=== PATIENT | female | born 1945 | race Caucasian/White ===

== ENCOUNTER → 2017-08-04 08:20 | Outpatient (CLI) | payer MEDICARE, SELFPAY ==
--- NOTE | 2017-08-04 08:36 | CA_ITS ---
PROCEDURE: 2-D M-mode and color Doppler study INDICATIONS FOR THE TEST: Chest pain COPD Heart Murmur Tobacco Smoking Palpitations Fatigue Syncope Edema HypertensionXDiabetes Mellitus Rheumatic Fever SOBXDOEXObesityXHyperlipidemia Family History HD Additional History PATIENT INFORMATION HEIGHT: 62 WEIGHT:217 GENDER: Female B/P:130/70 2-D/M-MODE INTERPRETATION: 2-D MEASUREMENTS OBSERVED VALUES IN CMS Right Ventricular Dimension (RVDd) 2.3 Interventricular Septum (Thickness)(IVsd) 1.4 Left Ventricular Internal Dimensions(LVIDd) 4.7 Left Ventricular Posterior Wall (Thickness)(LVPWd) 1.1 Aortic Root 3.1 Aortic Cusp Separation 1.9 Left Atrial Dimensions (LAD) 2.6 2D 1. Technically difficult study because of the patient's factor and poor acoustic windows 2. Left atrium is mildly enlarged, left ventricle is normal size, mild concentric left ventricular hypertrophy, visually estimated ejection fraction approximately 40%, there is marked hypokinesis involving the mid to distal septum, anterior and apical wall. A repeat study with Definity contrast is recommended 3. The right atrium and right ventricle are relatively normal size and function. 4. The aortic valve is minimally thickened and fibrosed. 5. The mitral and tricuspid valve are grossly normal. 6. No significant pericardial effusion noted. DOPPLER INTERROGATION: Doppler interrogation of the aortic, mitral and tricuspid valvular presence of mild mitral and tricuspid regurgitation, tricuspid and jet velocity is insufficient for calculation of the right ventricular systolic pressure, grade 1 diastolic dysfunction seen with tissue Doppler evidence of raised left atrial pressure. CONCLUSION: 1. Technically difficult study because of the patient's factor and poor acoustic windows, endocardial surfaces are poorly visualized. 2. Mildly enlarged left atrium, normal left ventricular size, mild concentric left ventricular hypertrophy, visually estimated ejection fraction 40% with multiple segmental wall motion abnormality described above. Grade 1 diastolic dysfunction seen with tissue Doppler evidence of raised left atrial pressure. 3. Mild mitral and tricuspid regurgitation 4. No significant pericardial effusion noted.
--- NOTE | 2017-08-04 09:24 | MM_ITS ---
MM Dig screening mamm BI w/CAD CAD Screening ORDERING PHYSICIAN : Harry Torres MD PATIENT AGE: 72 years GENDER: Female COMPARISON: No prior studies available for comparison. The patient unsure of site of previous mammogram, and states it was over 10 years ago INDICATION: Routine screening. No hormones no new complaints Family history. Maternal aunt with breast cancer TECHNIQUE: Standard CC and MLO images were obtained. R2 CAD reviewed. FINDINGS: Lower density breast with scattered moles and multiple markers bilaterally. RIGHT BREAST: No prominent findings. A small 6 mm nodular density at lateral breast towards upper outer quadrant is noted.. It is most evident on cc views and seems to dissipate on MLO view by far most likely a benign feature. Since no previous studies Would suggest 6-8 months follow-up to confirm stable baseline character here. LEFT BREAST No areas of concern follow-up in one year recommended No new findings IMPRESSION: ... Right breast. Tiny 6 mm nodular density lateral right breast towards upper-outer quadrant. Most likely benign features but would suggest a follow-up right mammogram in 6-8 months to confirm stable baseline character.With routine protocol thereafter BI-RADS Category: 3 Benign Finding Short Term Follow-up RECOMMENDED FOLLOW-UP: 6M - 6 MONTH FOLLOW-UP Follow-up Right mammogram 6 months to confirm stable baseline character. (A letter has been sent to the patient regarding results of the study.)
== END ==
PROVIDERS: Family Provider Family Medicine; PCP Family Medicine; Visit Provider Family Medicine
DX: R06.02 Shortness of breath (principal); Z12.31 Encounter for screening mammogram for malignant neoplasm of breast
CPT/HCPCS: 77067; 93306

== ENCOUNTER → 2018-03-02 11:30 | Outpatient (CLI) | payer MEDICARE, SELFPAY ==
--- NOTE | 2018-03-02 11:36 | XR_ITS ---
XR chest 2V HISTORY: ITS.REASON: COUGH ORDERING PHYSICIAN: Harry Torres MD PATIENT AGE: 72 years COMPARISON: 04/04/2011 FINDINGS: The cardiomediastinal silhouette and pulmonary vascularity are within normal limits. There is some increased density noted in the right infrahilar region. There were chronic changes in this area on 04/04/2011 however, the current radiograph shows some slight increased density in this area which may represent superimposed infiltrate/pneumonia. The remaining lungs are clear. There are mild degenerative changes in the thoracic spine. A nodular density is noted over the posterior aspect of the T7 vertebral body on the lateral view possibly due to sclerotic lesion of the vertebra or overlying osteophyte. Cannot exclude the possibility of a pulmonary nodule. Consider follow-up radiograph to confirm stability. IMPRESSION: 1. Chronic changes in the right lower lung zone with superimposed patchy infiltrate/pneumonia. 2. 1 cm nodular opacity overlies T7 vertebral body on the lateral view could be due to bony abnormality or pulmonary nodule. Consider follow-up radiograph to confirm stability
== END ==
PROVIDERS: PCP Family Medicine; Visit Provider Family Medicine
DX: R05 Cough (principal)
CPT/HCPCS: 71046

== ENCOUNTER → 2018-04-10 13:31 | Outpatient (CLI) | payer MEDICARE, SELFPAY ==
--- NOTE | 2018-04-10 13:34 | MM_ITS ---
MM Dig mamm DX unilat RT CAD Ordering Physician: Harry Torres MD Patient Age: 73 years Female COMPARISON: July 2017 baseline study INDICATION: Follow-up small benign-appearing asymmetric density TECHNIQUE: Cc and MLO view right breast. Along with spot CC and 90 degree view. RIGHT MAMMOGRAM. DIAGNOSTIC EXAM Tiny less than 6 mm density upper-outer quadrant right breast stable to less evident today mammogram studies than on previous July 2017 study. This area Actually appears to Becomes even less evident on the additional CC and MLO spot views from today. It Seem to compress out. Not of significant concern and can be followed.. Patient may resume annual scheduled IMPRESSION: ............ The tiny nodular density upper-outer quadrant right breast slightly less evident today. Supporting benign feature. It can be followed No significant new findings. Bilateral follow-up to resume annual schedule in 6-8 months suggested BI-RADS Category: 2 Benign Finding(s) RECOMMENDED FOLLOW-UP: 6M 6 MONTH FOLLOW-UP A letter has been sent to the patient regarding results of the study.)
== END ==
PROVIDERS: PCP Family Medicine; Visit Provider Family Medicine
DX: R92.8 Other abnormal and inconclusive findings on diagnostic imaging of breast (principal)
CPT/HCPCS: 77065

== ENCOUNTER → 2018-07-28 10:08 | Outpatient (CLI) | payer MEDICARE, SELFPAY ==
--- NOTE | 2018-07-28 10:15 | XR_ITS ---
XR shoulder RT min 2V HISTORY: ITS.REASON: RT SHOULDER PAIN ORDERING PHYSICIAN: Harry Torres MD PATIENT AGE: 73 years Comparison: None FINDINGS: No fracture or dislocation. No lytic or blastic change. There is normal mineralization. There are mild osteoarthritic changes of the glenohumeral joint with osteosclerosis of the glenoid and osteophytes of the glenohumeral joint. IMPRESSION: Osteoarthritis of the glenohumeral joint
== END ==
PROVIDERS: PCP Family Medicine; Visit Provider Family Medicine
DX: M25.511 Pain in right shoulder (principal)
CPT/HCPCS: 73030

== ENCOUNTER 2018-09-10 11:00 | Outpatient (RCR) | payer MEDICARE, SELFPAY | END 2018-09-10 11:05 | disposition home or self-care (01) | LOC: OT 11:00 | PROVIDERS: Visit Provider Orthopaedic Surgery | DX: M25.511 Pain in right shoulder (principal) | CPT/HCPCS: 97014; 97110; 97166; G0283 ==

== ENCOUNTER → 2019-08-30 10:50 | Outpatient (CLI) | payer MEDICARE, SELFPAY ==
--- NOTE | 2019-08-30 10:51 | CA_ITS ---
APPROVED REPORT EXAM: Comprehensive 2D, Doppler, and color-flow Echocardiogram Furniture Duster: Jackie Chino CRT Ht: 5 ft 2 in Wt: 200lbs BSA: 1.91 BP: 150/64 mmHg Indications: HTN, DM, HLD, GERD, CHF 2D Dimensions LVOT 1.74 cm (M/F) 1.5-2.5 M-Mode Dimensions RVDd 2.09 cm (0.9-2.6) LVDd 5.41 cm (3.5-5.7) LVDs 4.02 cm (3.5-5.7) IVSd 1.31 cm (0.6-1.1) PWd 1.04 cm (0.6-1.1) EF (Teich) 50.10% FS 25.70% EDV (Teich) 141.90 mL ESV (Teich) 70.80 mL LV Diastology E/A Ratio 0.76 Mitral Valve MV A Velocity 109.00 (40-130 cm/s) Left Ventricle Left atrium is moderately enlarged, left ventricle is normal size, mild concentric left ventricular hypertrophy, visually estimated ejection fraction 45%, left ventricle is mildly globally hypokinetic. Diastolic parameters are inconclusive. Right Ventricle Right atrium and right ventricular normal size and contractility. Aortic Valve Aortic valve is minimally thickened and calcified, there is no aortic stenosis or aortic insufficiency. Mitral Valve Mitral valve leaflets are minimally thickened, there is moderate mitral regurgitation Tricuspid Valve Tricuspid valve is grossly normal, there is moderate tricuspid regurgitation, calculated right ventricular systolic pressure is 54 mmHg. Pulmonic Valve Pulmonic valve is poorly visualized. Great Vessels Aortic root is normal size. Pericardium No significant pericardial effusion noted. Conclusion 1. Biatrial enlargement, normal left ventricular size, visually estimated ejection fraction 45%, left ventricle is mildly globally hypokinetic. Diastolic parameters are inconclusive. 2. Moderate mitral and tricuspid regurgitation, calculated right ventricular systolic pressure is 54 mmHg. 3. No significant pericardial effusion noted. Electronically signed by : Sony Vargas, 08/30/2019 20:13:13
== END ==
PROVIDERS: PCP Family Medicine; Visit Provider Physician Assistant
DX: I42.9 Cardiomyopathy, unspecified (principal); I50.22 Chronic systolic (congestive) heart failure; I51.89 Other ill-defined heart diseases; R06.09 Other forms of dyspnea
CPT/HCPCS: 93306

== ENCOUNTER → 2020-02-08 07:41 | Outpatient (CLI) | payer MEDICARE, SELFPAY ==
--- NOTE | 2020-02-08 07:46 | MM_ITS ---
PROCEDURE: MM DIG SCREENING MAMM BI W/CAD Referring Doctor: Harry Torres Patient Age:74Y CLINICAL INDICATION: SCREENING 74-year-old. No hormones. No new complaints Family history: Maternal aunt with breast cancer COMPARISON: MG SCBI MM Dig screening mamm BI w/CAD from 08/04/2017 MG DXRT MM Dig mamm DX unilat RT CAD from 04/10/2018 TECHNIQUE: Standard CC and MLO images were obtained. R2 CAD reviewed. Bilateral digital breast tomosynthesis included. FINDINGS: Low-density breast with generalized fatty replacement. No new suspicious or dominant mass. No suspicious calcifications. Scattered skin moles again encountered and some are marked. Right breast: Stable no new areas of concern . Stable very small area of nodularity at the lateral right breast to a unchanged in 2018 most likely small intramammary lymph node. Can be followed Left breast: Stable. No areas of concern . Stable generous axillary node with partially calcified rim unchanged since 2018 Bilateral follow-up 1 year recommended IMPRESSION: Stable bilateral mammogram with no new areas of concern Low-density breast generalized fatty replacement BI-RAD Category: 2 Benign Finding(s) FOLLOW-UP: 1YR 1 Year Follow-up (A letter has been sent to the patient regarding results of the study.) Dictated by: Jason Palafox MD 02/15/2020 09:53 Jason Palafox MD in [place] 02/15/2020 09:53
== END ==
PROVIDERS: PCP Family Medicine; Visit Provider Family Medicine
DX: Z12.31 Encounter for screening mammogram for malignant neoplasm of breast (principal)
CPT/HCPCS: 77063; 77067

== ENCOUNTER → 2020-09-13 09:51 | Outpatient (CLI) | payer MEDICARE, SELFPAY ==
--- NOTE | 2020-09-13 09:57 | CA_ITS ---
APPROVED REPORT EXAM: Comprehensive 2D, Doppler, and color-flow Echocardiogram Financial Analyst Intern: Megha Bello, DEANN, RVS Ht: 5 ft 2 in Wt: 206lbs BSA: 1.94 BP: 142/82 mmHg Indications: Cm, CHF, Pulm HTN, SOB 2D Dimensions Left Atrium 2.94 cm F: 2.7 - 3.8 LA Volume 77.40 mL LVOT 1.66 cm (M/F) 1.5-2.5 LA Volume Index 40.10 mL/m2 (M/F) 16-34 M-Mode Dimensions RVDd 3.04 cm (0.9-2.6) LA Diam 4.23 cm (1.9-4.0) LVDd 4.92 cm (3.5-5.7) Ao Diam 2.67 cm (2.0-3.7) LVDs 3.56 cm (3.5-5.7) IVSd 0.85 cm (0.6-1.1) PWd 0.72 cm (0.6-1.1) EF (Teich) 57.00% EPSs 0.65 cm FS 30.10% EDV (Teich) 123.20 mL TAPSE 2.15 (<1.7) ESV (Teich) 53.00 mL LV Diastology E Decel Time 200.00 (160-240 msec) E/A Ratio 0.78 MED E' 13.40 (< 7 cm/sec) MED A' 9.40 cm/s E'/MED E' Ratio 6.70 (>14) LAT E' 9.30 (<10 cm/sec) LAT A' 12.20 cm/s E/LAT E' Ratio 9.66 (>14) Pulm Vein s 70.00 cm/sec Pulm Vein d 26.00 cm/sec Ar-A Duration 130.00 msec Aortic Valve LVOT Max 108.00 (70-110 cm/s) LVOT VTI 24.59 cm AoV Peak Jerson. 180.00 (50-130 cm/s) AO Peak GR. 13.00 mmHg AO Mean GR. 6.30 (<5 mmHg) AO VTI 43.69 (18-25 cm) LUCAS (VTI) 1.22 (2.5-4.5 cm2) Mitral Valve MV A Velocity 115.00 (40-130 cm/s) E/A Ratio 0.78 MV Decel. Time 200.00 (160-240 ms) Pulmonary Valve PV Peak Velocity 109.00 (50-150 cm/s) Tricuspid Valve TR P. Velocity 327.00 cm/s RAP Estimate 10.00 mmHg RVSP 52.70 mmHg Left Ventricle Left atrium is mildly enlarged, left ventricle is normal size, mild concentric left ventricular hypertrophy, visually estimated ejection fraction 45%, there is abnormal septal motion. Grade 1 diastolic dysfunction seen without tissue Doppler evidence of raise left atrial pressure. Right atrium and right ventricle mildly enlarged with normal contractility. Aortic Valve Aortic valve is minimally thickened and fibrosed, there is no aortic stenosis or aortic insufficiency. Mitral Valve Mitral valve leaflets are minimally thickened, there is moderate mitral regurgitation. Tricuspid Valve Tricuspid grossly normal, there is mild tricuspid regurgitation, calculated right ventricular systolic pressure is 52 mmHg. Pulmonic Valve Pulmonic valve is poorly visualized. Great Vessels Aortic root is normal size. Pericardium No significant pericardial effusion noted. Conclusion 1. Biatrial enlargement, normal left ventricular size, mild concentric left ventricular hypertrophy, visually estimated ejection fraction 45%, grade 1 diastolic dysfunction without tissue Doppler evidence of raise left atrial pressure, there is abnormal septal motion. 2. Moderate mitral and mild tricuspid regurgitation, calculated right ventricular systolic pressure is 52 mmHg. 3. No significant pericardial effusion noted. Electronically signed by : Sony Vargas, 09/14/2020 13:27:26
== END ==
PROVIDERS: PCP Family Medicine; Visit Provider Nurse Practitioner Family
DX: I27.20 Pulmonary hypertension, unspecified (principal); I50.22 Chronic systolic (congestive) heart failure; I50.33 Acute on chronic diastolic (congestive) heart failure; I11.0 Hypertensive heart disease with heart failure; I42.0 Dilated cardiomyopathy; E11.9 Type 2 diabetes mellitus without complications; Z79.4 Long term (current) use of insulin
CPT/HCPCS: 93306

== ENCOUNTER 2021-05-13 02:45 | Emergency (ER) | payer MEDICARE, SELFPAY ==
[2021-05-13 02:46] VITALS: BP 186/95; PULSE 103; RESP 16; TEMP 36.9; O2SAT 99; BMI 38.4
[2021-05-13 03:30] LABS: Influenza A, PCR Not Detected (NotDetected); Influenza B, PCR Not Detected (NotDetected)
[2021-05-13 03:31] LABS: Basophils # 0.1 K/mm3 (0-0.2); Basophils % 0.7 % (0.1-2.0); Eosinophils # 0.1 K/mm3 (0.0-0.4); Eosinophils % 1.9 % (0.1-12.0); Hematocrit 38.9 % (37.0-47.0); Hemoglobin 11.9 g/dL (12.2-16.2); Lymphocytes # 1.4 K/mm3 (0.7-4.5); Mean Corpuscular HGB Conc 30.5 g/dL (31.8-35.4); Mean Corpuscular Hemoglobin 27.9 pg (27.0-31.2); Mean Corpuscular Volume 91.4 fl (81-99); Mean Platelet Volume 8.4 fl (7.4-10.4); Monocytes # 0.5 K/mm3 (0.1-1.0); Monocytes % 6.5 % (1.7-9.3); Neutrophils # 5.1 K/mm3 (1.8-7.8); Neutrophils % 71.8 % (37.0-80.0); Platelet Count 251 K/mm3 (142-424); Red Blood Count 4.26 M/mm3 (4.20-5.40); Red Cell Distribution Width 14.1 % (11.5-17.5); White Blood Count 7.1 K/mm3 (4.8-10.8)
[2021-05-13 03:43] LABS: Alanine Aminotransferase 52 U/L (12-78); Albumin Level 4.4 g/dl (3.5-5.0); Albumin/Globulin Ratio 1.4 (1.1-1.8); Alkaline Phosphatase 142 U/L (38-126); Anion Gap 10.7 mEq/L (5-15); Aspartate Amino Transferase 60 U/L (14-36); Bilirubin,Total 0.4 mg/dl (0.2-1.3); Blood Urea Nitrogen 15 mg/dl (7-17); Calcium 9.8 mg/dl (8.4-10.2); Carbon Dioxide 22 mmol/L (22.0-30.0); Chloride 107 mmol/L (98-107); Creatinine Clearance Estimated 65 mL/min (50-200); Estimated Glomerular Filt Rate 48 ml/min (>60); GFR (African American) 58 ML/MIN (>60); Globulin 3.2 g/dL (1.3-3.2); Glucose 102 mg/dl (74-100); Potassium 4.7 mmoL/L (3.5-5.1); Sodium 135 mmol/L (136-145); Total Protein,Serum 7.6 g/dl (6.3-8.2)
[2021-05-13 03:47] LABS: Strep Scrn Group A (Rapid) Negative (Negative)
[2021-05-13 03:50] LABS: C-Reactive Protein 50.1 mg/L (0-4)
[2021-05-13 04:10] LABS: Coronavirus 19, PCR Detected (NotDetected)
[2021-05-13 04:11] LABS: Erythrocyte Sedimentation Rate 52 mm/hr (0-30)
--- NOTE | 2021-05-13 04:11 | XR_ITS ---
PROCEDURE INFORMATION: Exam: XR Chest Exam date and time: 05/13/2021 4:11 AM Age: 76 years old Clinical indication: Other: Sore throat covid positive; Additional info: Covid positive sore throat TECHNIQUE: Imaging protocol: XR of the chest. Views: 2 views. COMPARISON: CR CXR2V XR chest 2V 03/02/2018 11:55 AM FINDINGS: Lungs: Unremarkable. No consolidation. Pleural spaces: Unremarkable. No pleural effusion. No pneumothorax. Heart/Mediastinum: Unremarkable. No cardiomegaly. Bones/joints: Unremarkable. IMPRESSION: No acute findings.
--- NOTE | 2021-05-13 04:36 | HMH.EDURI ---
ED Disposition Clinical Impression: COVID-19 Pharyngitis Qualifiers: Pharyngitis/tonsillitis etiology: unspecified etiology Qualified Code(s): J02.9 - Acute pharyngitis, unspecified Disposition: Home, Self-Care Condition on Discharge: Good Instructions: DI for COVID-19 (Suspected or Confirmed ) Additional Instructions: use meds and see pcp for follow up Prescriptions: dexAMETHasone [Decadron] 6 mg PO DAILY #6 tab [facility]: [id number] Azithromycin [Zithromax 250mg tab] 250 mg PO DIRECTED #6 tab Transmission Status: Pending to [id number] Referrals: Harry Torres MD [Primary Care Provider] - - Critical Care Critical Care Time: No Attestation: On 05/13/21, the high probability of a clinically significant, sudden or life threatening deterioration of the following system(s) required my full and direct attention, intervention and personal management. The time I documented below is in addition to time spent performing reported procedures but includes the following listed in this critical care notation. Medical Decision Making - Medical Records Medical records reviewed: Yes: I reviewed the patient's medical records. - [place] Inquiry Pt receiving controlled substance: No Vital Signs: 05/13/21 02:46 Temperature 98.4 F Temperature Source Oral Pulse Rate [Right] 103 H Respiratory Rate 16 Blood Pressure [Right Arm] 186/95 H Blood Pressure Mean [Right Arm] 125 02 Sat by Pulse Oximetry 99 - Lab Data Lab results reviewed: Yes: I reviewed the patient's lab results. Lab Results 05/13/21 03:00: WBC 7.1, RBC 4.26, Hgb 11.9 L, Hct 38.9, MCV 91.4, MCH 27.9, MCHC 30.5 L, RDW 14.1, Plt Count 251, MPV 8.4, Neut % (Auto) 71.8, Lymph % (Auto) 19.0, [place] % (Auto) 6.5, Eos % (Auto) 1.9, Baso % (Auto) 0.7, Neut # (Auto) 5.1, Lymph # (Auto) 1.4, [place] # (Auto) 0.5, Eos # (Auto) 0.1, Baso # (Auto) 0.1, ESR 52 H 05/13/21 03:00: Sodium 135 L, Potassium 4.7, Chloride 107, Carbon Dioxide 22, Anion Gap 10.7, BUN 15, Creatinine 1.10 H, Estimated Creat Clear 65, Estimated GFR 48 L, Est GFR ( Amer) 58 L, Glucose 102 H, Calcium 9.8, Total Bilirubin 0.4, AST 60 H, ALT 52, Alkaline Phosphatase 142 H, C-Reactive Protein 50.1 H, Total Protein 7.6, Albumin 4.4, Globulin 3.2, Albumin/Globulin Ratio 1.4, Procalcitonin 0.130 05/13/21 03:05: Group A Strep Rapid Negative 05/13/21 03:05: SARS-CoV-2 (PCR) Detected A, Influenza A Untype (PCR) Not detected, Influenza Type B (PCR) Not detected Result diagrams: 05/13/21 03:00 05/13/21 03:00 Orders (Tests/Meds): ED MEDICATIONS Discontinued Medications Generic Name Dose Route Start Last Admin Trade Name Freq PRN Reason Stop Dose Admin Dexamethasone Sodium Phosphate 10 mg 05/13/21 03:30 05/13/21 03:33 Dexamethasone 4mg/Ml 5ml Mdv IV 05/13/21 03:31 10 mg ONCE ONE Administration Ketorolac Tromethamine 30 mg 05/13/21 03:30 05/13/21 03:33 Ketorolac 30mg/Ml Vial IV 05/13/21 03:31 30 mg ONCE ONE Administration ORDERS Category Date Time Status Strep Screen Confirmation Stat Micro 05/13/21 03:05 Received - Radiology Data #1 Image(s): Chest Image Reviewed: Yes I have reviewed radiologist's interpretation Preliminary Findings: Normal/NAD Medical Decision Narrative: has covid-19 but stable exam and labs URI/Sore Throat HPI - General Chief Complaint: Upper Respiratory Infection Stated Complaint: Sore Throat;swelling in throat Time Seen by Provider: 05/13/21 03:30 Mode of Arrival: Ambulatory Source of Information: Patient, Medical Record Limitations: No Limitations Description of Symptoms (Recalled from ER Triage Doc. by RN): pt states sunita night her throat had a tingle and was sore that has progessive gotten worse. pt denies any other symptoms. - History of Present Illness HPI Narrative: sore throat over the last days with no rash - has hx of covid-19 vaccine Complaint: sore thr
[2021-05-13 04:42] VITALS: BP 160/87; PULSE 90; RESP 19; TEMP 36.9; O2SAT 98
== END 2021-05-13 04:58 | disposition home or self-care (01) ==
PROVIDERS: Emergency Provider Emergency Medicine; PCP Family Medicine
DX: U07.1 COVID-19 (principal); J02.9 Acute pharyngitis, unspecified; E11.9 Type 2 diabetes mellitus without complications; I10 Essential (primary) hypertension; E78.5 Hyperlipidemia, unspecified; K21.9 Gastro-esophageal reflux disease without esophagitis; Z79.899 Other long term (current) drug therapy
CPT/HCPCS: 71046; 80053; 84145; 85025; 85651; 86140; 87430; 96374; 96375; 99283; 99284; C9803; U0003; U0005

== ENCOUNTER 2021-05-20 13:37 | Inpatient (IN) | payer MEDICARE, SELFPAY ==
[2021-05-20] VITALS (9 sets, daily range): BP systolic 128–172; BP diastolic 40–90; PULSE 66–97; RESP 16–18; TEMP 36.6–37.2; O2SAT 95–100; BMI 36.9; BMI 37.7
[2021-05-20 14:42] LABS: Basophils % 0.1 % (0.1-2.0); Eosinophils # 0.2 K/mm3 (0.0-0.4); Eosinophils % 0.8 % (0.1-12.0); Hematocrit 38.8 % (37.0-47.0); Hemoglobin 12.3 g/dL (12.2-16.2); Lymphocytes # 1.2 K/mm3 (0.7-4.5); Lymphocytes % 5.9 % (10-50); Mean Corpuscular HGB Conc 31.8 g/dL (31.8-35.4); Mean Corpuscular Hemoglobin 28.7 pg (27.0-31.2); Mean Corpuscular Volume 90.3 fl (81-99); Monocytes # 0.7 K/mm3 (0.1-1.0); Monocytes % 3.7 % (1.7-9.3); Neutrophils # 17.6 K/mm3 (1.8-7.8); Neutrophils % 89.5 % (37.0-80.0); Platelet Count 377 K/mm3 (142-424); Red Blood Count 4.29 M/mm3 (4.20-5.40); White Blood Count 19.6 K/mm3 (4.8-10.8)
[2021-05-20 14:44] LABS: MANUAL DIFFERENTIAL MANUAL DIFFERENTIAL (MANUAL DIFF)
[2021-05-20 14:49] LABS: Alanine Aminotransferase 65 U/L (12-78); Albumin Level 3.8 g/dl (3.5-5.0); Albumin/Globulin Ratio 1.1 (1.1-1.8); Alkaline Phosphatase 174 U/L (38-126); Anion Gap 15.8 mEq/L (5-15); Aspartate Amino Transferase 40 U/L (14-36); Bilirubin,Total 0.7 mg/dl (0.2-1.3); Blood Urea Nitrogen 40 mg/dl (7-17); Calcium 9.2 mg/dl (8.4-10.2); Carbon Dioxide 20 mmol/L (22.0-30.0); Chloride 102 mmol/L (98-107); Creatinine Clearance Estimated 35 mL/min (50-200); Estimated Glomerular Filt Rate 24 ml/min (>60); GFR (African American) 29 ML/MIN (>60); Globulin 3.5 g/dL (1.3-3.2); Glucose 96 mg/dl (74-100); Potassium 4.8 mmoL/L (3.5-5.1); Sodium 133 mmol/L (136-145); Total Protein,Serum 7.3 g/dl (6.3-8.2)
--- NOTE | 2021-05-20 14:59 | CT_ITS ---
. PROCEDURE INFORMATION: Exam: CT Abdomen And Pelvis Without Contrast Exam date and time: 05/20/2021 2:59 PM Age: 76 years old Clinical indication: Abdominal pain; Acute; Additional info: Pain/ abd pain/ no contrast TECHNIQUE: Imaging protocol: Computed tomography of the abdomen and pelvis without contrast. Radiation optimization: All CT scans at this facility use at least one of these dose optimization techniques: automated exposure control; mA and/or kV adjustment per patient size (includes targeted exams where dose is matched to clinical indication); or iterative reconstruction. 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 Gallbladder and bile ducts: Unremarkable. No ductal dilation. Pancreas: Fatty atrophy, no acute finding. No ductal dilation. Spleen: Normal. No splenomegaly. Adrenal glands: Normal. No mass. Kidneys and ureters: No calculus or hydronephrosis. Stomach and bowel: No acute findings. No obstruction. No mucosal thickening. Colonic diverticulosis without acute diverticulitis. Appendix: No evidence of appendicitis. Intraperitoneal space: Unremarkable. No free air. No significant fluid collection. Vasculature: No abdominal aortic aneurysm. Lymph nodes: No significant adenopathy. Urinary bladder: Unremarkable as visualized. Reproductive: Unremarkable as visualized. Bones/joints: No acute findings. Spinal degenerative change. Soft tissues: Unremarkable. IMPRESSION: No acute findings.
--- NOTE | 2021-05-20 15:01 | HMH.EDABDPAI ---
ED Disposition Clinical Impression: Gastroenteritis, COVID-19 Disposition: Admitted As Inpatient Condition on Discharge: Fair Instructions: DI for Acute Abdominal Pain Referrals: Harry Torres MD [Primary Care Provider] - - Critical Care Critical Care Time: No Attestation: On 05/20/21, the high probability of a clinically significant, sudden or life threatening deterioration of the following system(s) required my full and direct attention, intervention and personal management. The time I documented below is in addition to time spent performing reported procedures but includes the following listed in this critical care notation. Medical Decision Making - Medical Records Medical records reviewed: Yes: I reviewed the patient's medical records. - [place] Inquiry Pt receiving controlled substance: Yes [place] was queried for this patient: No Risks and benefits of using a controlled substance: were discussed with pt by me Vital Signs: 05/20/21 13:59 05/20/21 16:31 05/20/21 17:01 Temperature 97.9 F Temperature Source Oral Pulse Rate 66 66 Pulse Rate [Radial] 89 Respiratory Rate 18 Blood Pressure 151/40 H 128/48 L Blood Pressure [Right Arm] 143/51 H Blood Pressure Mean [Right Arm] 81 Blood Pressure Position [Right Arm] Sitting 02 Sat by Pulse Oximetry 98 97 100 Oxygen Delivery Method Room Air Room Air Room Air 05/20/21 17:30 Temperature Temperature Source Pulse Rate 86 Pulse Rate [Radial] Respiratory Rate Blood Pressure 148/62 H Blood Pressure [Right Arm] Blood Pressure Mean [Right Arm] Blood Pressure Position [Right Arm] 02 Sat by Pulse Oximetry 98 Oxygen Delivery Method Room Air - Lab Data Lab Results 05/20/21 14:20: WBC 19.6 H, RBC 4.29, Hgb 12.3, Hct 38.8, MCV 90.3, MCH 28.7, MCHC 31.8, RDW 14.0, Plt Count 377, MPV 8.0, Neut % (Auto) 89.5 H, Lymph % (Auto) 5.9 L, [place] % (Auto) 3.7, Eos % (Auto) 0.8, Baso % (Auto) 0.1, Neut # (Auto) 17.6 H, Lymph # (Auto) 1.2, [place] # (Auto) 0.7, Eos # (Auto) 0.2, Baso # (Auto) 0.0, Total Counted 100, Neutrophils % (Manual) 86 H, Lymphocytes % (Manual) 5 L, Monocytes % (Manual) 8, Basophils % (Manual) 1.0, Platelet Estimate Normal 05/20/21 14:20: Sodium 133 L, Potassium 4.8, Chloride 102, Carbon Dioxide 20 L, Anion Gap 15.8 H, BUN 40 H, Creatinine 2.00 H, Estimated Creat Clear 35, Estimated GFR 24 L, Est GFR ( Amer) 29 L, Glucose 96, Calcium 9.2, Total Bilirubin 0.7, AST 40 H, ALT 65, Alkaline Phosphatase 174 H, Total Protein 7.3, Albumin 3.8, Globulin 3.5 H, Albumin/Globulin Ratio 1.1 05/20/21 14:20: Lipase 101 05/20/21 16:00: Lactate 0.8 05/20/21 16:00: SARS-CoV-2 (PCR) Detected A, Influenza A Untype (PCR) Not detected, Influenza Type B (PCR) Not detected 05/20/21 16:09: Urine Color Yellow, Urine Appearance Clear, Urine pH 5.0, Ur Specific [place] >= 1.030, Urine Protein Negative, Urine Glucose (UA) Negative, Urine Ketones Trace, Urine Blood Negative, Urine Nitrate Negative, Urine Bilirubin 1+ A, Urine Urobilinogen 0.2, Ur Leukocyte Esterase 1+ A, Urine RBC 5-10, Urine WBC 3-5, Ur Squamous Epith Cells 5-10, Urine Bacteria Trace Result diagrams: 05/20/21 14:20 05/20/21 14:20 Orders (Tests/Meds): ED MEDICATIONS Generic Name Dose Route Start Last Admin Trade Name Freq PRN Reason Stop Dose Admin Sodium Chloride 1,000 mls @ 999 mls/hr 05/20/21 16:00 05/20/21 16:15 Sod Chlor 0.9% 1000ml Bag IV 05/20/21 17:00 999 mls/hr .[id number] LILIYA Administration Discontinued Medications Generic Name Dose Route Start Last Admin Trade Name Freq PRN Reason Stop Dose Admin Morphine Sulfate 4 mg 05/20/21 14:59 05/20/21 15:02 Morphine 4mg/Ml Syringe IV 05/20/21 15:00 4 mg ONCE ONE Administration Ondansetron HCl 4 mg 05/20/21 14:59 05/20/21 15:02 Ondansetron 4mg/2ml Vial IV 05/20/21 15:00 4 mg ONCE ONE Administration Ondansetron HCl 4 mg 05/20/21 16:12 05/20/21 16:14 Ondansetron 4mg/2ml Vial IV 05/20/21 16:13
[2021-05-20 15:10] LABS: Lipase 101 U/L (23-300)
--- NOTE | 2021-05-20 15:12 | PC.NURSE ---
Addendum entered by Cayla Adkins 05/20/21 15:14: wrong patient information entered. Original Note: patient was up to the bathroom, back in bed now; hooked back up to vital signs.
[2021-05-20 15:30] LABS: Lymphocytes % 5 % (10-50); Monocytes % 8 % (2-9); Neutrophils % 86 % (42-76); Platelet Estimate Normal; Total Cells Counted 100
--- NOTE | 2021-05-20 15:51 | XR_ITS ---
PROCEDURE INFORMATION: Exam: XR Chest Exam date and time: 05/20/2021 3:51 PM Age: 76 years old Clinical indication: Cough TECHNIQUE: Imaging protocol: XR of the chest. Views: 1 view. COMPARISON: CR XR CHEST 2V 05/13/2021 4:10 AM FINDINGS: Lungs: Minimal bilateral lower lung opacity. Pleural spaces: Unremarkable. No pleural effusion. No pneumothorax. Heart/Mediastinum: Unremarkable. No cardiomegaly. Bones/joints: No acute findings. IMPRESSION: Minimal bilateral lower opacity consistent with atelectasis, pneumonia, or scar.
--- NOTE | 2021-05-20 16:00 | PC.NURSE ---
radiology was bedside
--- NOTE | 2021-05-20 16:05 | PC.NURSE ---
assisted donna information security to helping patient to the bathroom to provide urine sample.
--- NOTE | 2021-05-20 16:09 | PC.NURSE ---
patient was assisted back out of the bathroom urine was collected and sent to the lab. Patient was placed in a recliner chair in her room because she doesn't want to lay in the bed.
[2021-05-20 16:10] LABS: Influenza A, PCR Not Detected (NotDetected); Influenza B, PCR Not Detected (NotDetected)
[2021-05-20 16:15] LABS: Microscopic, Urine URINE MICROSCOPIC (MICROSCOPIC)
[2021-05-20 16:20] LABS: Appearance,Urine CLEAR (Clear); Blood, Urine Negative (Negative); Color,Urine YELLOW (Yellow); Glucose,Urine (UA) Negative (Negative); Ketones,Urine TRACE (Negative); Leukocyte Esterase,Urine 1+ (Negative); Nitrate,Urine Negative (Negative); Protein,Urine Negative (Negative); Specific Gravity, Urine >= 1.030 (1.005-1.030); Urobilinogen,Urine 0.2 EU/dl (0.2)
[2021-05-20 16:25] LABS: Lactic Acid 0.8 mmol/L (0.7-2.1)
[2021-05-20 16:27] LABS: Bilirubin,Urine 1+ (Negative)
[2021-05-20 16:30] LABS: Bacteria,Urine Trace /lpf
[2021-05-20 16:47] LABS: Coronavirus 19, PCR Detected (NotDetected)
--- NOTE | 2021-05-20 18:06 | PC.NURSE ---
Dr Hassan speaking with Dr Bryant
--- NOTE | 2021-05-20 18:36 | PC.NURSE ---
REPORT CALLED TO FLOOR
--- NOTE | 2021-05-20 18:58 | PC.NURSE ---
2nd floor staff present to transport pt upstairs via w/c
--- NOTE | 2021-05-20 19:00 | PC.NURSE ---
PT ARRIVED TO FLOOR VIA W/C FROM ED W/STAFF @ [id number]
[2021-05-21] VITALS: BP 164/55; PULSE 88; RESP 18; TEMP 37.2; O2SAT 92
[2021-05-21 04:00] VITALS: BP 172/57; PULSE 100; RESP 18; TEMP 37.2; O2SAT 96
[2021-05-21 05:00] VITALS: BMI 38.5
[2021-05-21 05:28] LABS: POC Glucose,Bedside 101 (70-110)
[2021-05-21 05:28] LABS: POC Glucose,Bedside 85 (70-110)
--- NOTE | 2021-05-21 07:17 | P.CONPHA_ITS ---
[facility] Pharmacy VTE Monitoring - Patient Demographics Admission date: 05/20/21 Report Date: 05/21/21 Time: 07:17 Allergies/Adverse Reactions: Patient Allergies DON Inhibitors Allergy (Mild, Verified 05/21/21 04:49) Unknown allergy reaction NSAIDS (Non-Steroidal Anti-Inflamma Allergy (Mild, Verified 05/21/21 04:49) Unknown allergy reaction Nhsywjr-Bre-Jfp Reductase Inhibitor Allergy (Mild, Verified 09/05/20 09:03) Unknown allergy reaction Height: 1.57 m Weight: 94.937 kg Patient Problems: Current Active Problems COVID-19 (Acute) Gastroenteritis (Acute) - VTE Risk Labs: VTE Related Lab Results Hgb 12.3 g/dL (12.2-16.2) 05/20/21 14:20 Hct 38.8 % (37.0-47.0) 05/20/21 14:20 Plt Count 377 K/mm3 (142-424) 05/20/21 14:20 BUN 40 mg/dl (7-17) H 05/20/21 14:20 Creatinine 2.00 mg/dl (0.52-1.04) H 05/20/21 14:20 Estimated Creat Clear 35 mL/min (50-200) 05/20/21 14:20 VTE Score: 7 VTE Risk Level: Moderate Risk - Prophylaxis VTE Prophylaxis Ordered?: Yes Types of VTE Prophylaxis: TEDS Knee High, Pharmacological Location of Applied Device: Bilateral Lower Extremeties Pharmacologic Type: Enoxaparin
[2021-05-21 07:31] LABS: Basophils % 0.2 % (0.1-2.0); Eosinophils # 0.1 K/mm3 (0.0-0.4); Eosinophils % 0.4 % (0.1-12.0); Hematocrit 37.4 % (37.0-47.0); Hemoglobin 12.1 g/dL (12.2-16.2); Lymphocytes # 1.8 K/mm3 (0.7-4.5); Lymphocytes % 8.8 % (10-50); Mean Corpuscular HGB Conc 32.4 g/dL (31.8-35.4); Mean Corpuscular Hemoglobin 29.3 pg (27.0-31.2); Mean Corpuscular Volume 90.6 fl (81-99); Mean Platelet Volume 8.2 fl (7.4-10.4); Monocytes % 4.8 % (1.7-9.3); Neutrophils # 17.1 K/mm3 (1.8-7.8); Neutrophils % 85.8 % (37.0-80.0); Platelet Count 440 K/mm3 (142-424); Red Blood Count 4.13 M/mm3 (4.20-5.40); Red Cell Distribution Width 13.7 % (11.5-17.5); White Blood Count 19.9 K/mm3 (4.8-10.8)
[2021-05-21 07:32] LABS: Chloride 103 mmol/L (98-107); Sodium 132 mmol/L (136-145)
[2021-05-21 07:33] LABS: Potassium 4.9 mmoL/L (3.5-5.1)
[2021-05-21 07:35] LABS: Blood Urea Nitrogen 35 mg/dl (7-17); Creatinine Clearance Estimated 42 mL/min (50-200); Estimated Glomerular Filt Rate 29 ml/min (>60); GFR (African American) 35 ML/MIN (>60)
[2021-05-21 07:36] LABS: Anion Gap 16.9 mEq/L (5-15); Calcium 8.4 mg/dl (8.4-10.2); Carbon Dioxide 17 mmol/L (22.0-30.0); Glucose 83 mg/dl (74-100)
[2021-05-21 07:48] LABS: MANUAL DIFFERENTIAL MANUAL DIFFERENTIAL (MANUAL DIFF)
[2021-05-21 08:00] VITALS: BP 179/67; PULSE 99; RESP 16; TEMP 36.6; O2SAT 94
--- NOTE | 2021-05-21 08:36 | HMH.HP ---
*Admission Date: 05/20/21 <Sendy Doyle 05/21/21 08:39> *Chief complaint: Abdominal pain <Sendy Doyle 05/21/21 08:39> *History of present illness: Ms. Mejia is a 76-year-old female with a history of type 2 diabetes mellitus, hypertension, cardiomyopathy, mild diastolic dysfunction, GERD, osteoarthritis, and lumbar disc disease who presented to [facility] with worsening abdominal pain. She states the pain started about 3 days ago. She denies having any nausea, vomiting, or diarrhea. She had a normal stool yesterday and noted no blood. She denies having a fever. She states she did have a sore throat last week and tested positive for Covid. Currently this has resolved and she denies any further upper respiratory symptoms. With evaluation in the emergency room abdominal/pelvic CT reveals no acute findings. Chest x-ray showed minimal bilateral lower opacity consistent with atelectasis, pneumonia, or scar. The patient was noted to be afebrile. White blood cell count was 19,600. Sodium was low at 133. Alkaline phosphatase was elevated at 174 with an elevated AST at 40. Covid was noted to be positive. She did have 1+ leuk esterase with urinalysis. She received a liter of IV fluids, 4 mg of morphine IV and Zofran 4 mg IV for her pain. She was then admitted for further evaluation and treatment. Patient complaint at present is that she is thirsty and wants some water or ice chips or else. She does not understand why she is n.p.o. She has minimal lower abdominal discomfort and denies nausea and vomiting. She has been up to the bathroom several times and is voiding QS. She has had no stool since admission. Again she denies any upper respiratory symptoms. <DoyleSendy guerrero 05/21/21 14:19> [facility] History Medical History: Reports:: Congestive Heart Failure, Diabetes Mellitus Type 2, Gastroesophageal Reflux Disease(GERD), Hyperlipidemia, Hypertension Denies:: Cancer, Diabetes Mellitus Type 1, Internal Pacemaker, MRSA, Seizures <Sendy Doyle 05/21/21 14:19> *Have you ever received a pneumonia vaccine?: Yes <Sendy Doyle 05/21/21 08:39> *Have you received a flu vaccine this season?: Yes <Sendy Doyle 05/21/21 08:39> Other Medical History: Reports: Arthritis <VivekSendy 05/21/21 08:39> Laterality Cases: Right: Total Knee Replacement, Bilateral: Cataract <VivekSendy 05/21/21 14:19> Other Surgeries: Yes: Other. No: Pacemaker <DoyleSendy 05/21/21 08:39> Amputation: No <DoyleSendy 05/21/21 08:39> Fractures: No <DoyleSendy 05/21/21 08:39> Comment: [place] teeth extraction <DoyleSendy 05/21/21 14:19> - *Social History Smoking Status: Never smoker <VivekSendy 05/21/21 08:39> #Yrs smoked (if former smoker): 10 <VivekSendy 05/21/21 08:39> Alcohol Intake: never <VivekSendy 05/21/21 08:39> Alcohol Intake Frequency:: other <DoyleSendy 05/21/21 08:39> Substance Use Type: denies use <VivekSendy 05/21/21 08:39> *Occupational Status:: retired <DoyleSendy 05/21/21 08:39> Housing: house <VivekSendy 05/21/21 08:39> Household Members: spouse <VivekSendy 05/21/21 08:39> *Travel in the last 8 weeks: None <Doyle,Sendy 05/21/21 08:39> Family Hx:: Coronary Artery Disease, Heart Attack, Hypertension <DoyleSendy 05/21/21 08:39> Review of Systems - Constitutional Denies fever(s) <Doyle,Sendy 05/21/21 14:19> - Eyes Denies change in vision <Doyle,Sendy 05/21/21 14:19> - ENT Denies dizziness, Denies ear pain, Denies sore throat <Sendy Doyle 05/21/21 14:19> - *Cardiovascular Denies chest pain, Denies shortness of breath, Denies leg swelling <Sendy Doyle 05/21/21 14:19> - *Respiratory Denies chest congestion, Denies cough, Denies shortness of breath <DoyleSendy guerrero - 05/21/21 14:19> - *Gastrointestinal Reports abdominal pain, Denies change in stools, Denies constipation, Denies heartburn, Denies bright, red
--- NOTE | 2021-05-21 08:38 | HMH.PHAINT ---
Home med rec complete
[2021-05-21 09:28] LABS: Lymphocytes % 14 % (10-50); Monocytes % 6 % (2-9); Neutrophils % 80 % (42-76); Platelet Estimate Normal; Total Cells Counted 100
[2021-05-21 09:29] LABS: RBC Morphology Normal
[2021-05-21 10:13] VITALS: BMI 38.1
[2021-05-21 11:43] LABS: POC Glucose,Bedside 118 (70-110)
[2021-05-21 13:25] VITALS: BP 132/57; PULSE 90; RESP 16; TEMP 37.1; O2SAT 95
--- NOTE | 2021-05-21 13:29 | PC.NURSE ---
Addendum entered by Vijaya Miller RN 05/21/21 13:52: NNO @ this time Original Note: Left a message w/ MD Torres's office regarding positive blood culture results. Also, left a message to notify MD of pt's elevated BP and HR to see about restarting home BP meds. Awaiting call back for new orders.
[2021-05-21 16:00] VITALS: BP 166/74; PULSE 82; RESP 16; TEMP 36.8; O2SAT 97
[2021-05-21 16:15] LABS: POC Glucose,Bedside 88 (70-110)
[2021-05-21 20:00] VITALS: BP 164/67; PULSE 97; RESP 20; TEMP 36.6; O2SAT 94
--- NOTE | 2021-05-21 20:10 | PC.NURSE ---
Patient would like to set up password for family to call for updates as [phone]
[2021-05-21 23:16] LABS: POC Glucose,Bedside 115 (70-110)
[2021-05-22] VITALS: BP 151/62; PULSE 90; RESP 17; TEMP 36.4; O2SAT 97
[2021-05-22 04:00] VITALS: BP 148/66; PULSE 91; RESP 16; TEMP 36.7; O2SAT 95
[2021-05-22 05:00] VITALS: BMI 38.7
[2021-05-22 06:49] LABS: Eosinophils # 0.1 K/mm3 (0.0-0.4)
[2021-05-22 06:57] LABS: Alanine Aminotransferase 33 U/L (12-78); Albumin Level 2.9 g/dl (3.5-5.0); Alkaline Phosphatase 120 U/L (38-126); Anion Gap 11.3 mEq/L (5-15); Aspartate Amino Transferase 27 U/L (14-36); Bilirubin,Total 0.6 mg/dl (0.2-1.3); Blood Urea Nitrogen 22 mg/dl (7-17); Calcium 8.2 mg/dl (8.4-10.2); Carbon Dioxide 18 mmol/L (22.0-30.0); Chloride 105 mmol/L (98-107); Creatinine Clearance Estimated 66 mL/min (50-200); Estimated Glomerular Filt Rate 48 ml/min (>60); GFR (African American) 58 ML/MIN (>60); Globulin 2.9 g/dL (1.3-3.2); Glucose 93 mg/dl (74-100); Potassium 4.3 mmoL/L (3.5-5.1); Sodium 130 mmol/L (136-145); Total Protein,Serum 5.8 g/dl (6.3-8.2)
[2021-05-22 07:32] LABS: Basophils % 0.1 % (0.1-2.0); Hematocrit 32.5 % (37.0-47.0); Mean Corpuscular HGB Conc 30.8 g/dL (31.8-35.4); Mean Corpuscular Hemoglobin 28.7 pg (27.0-31.2); Mean Corpuscular Volume 93.2 fl (81-99); Mean Platelet Volume 9.1 fl (7.4-10.4); Monocytes # 0.6 K/mm3 (0.1-1.0); Neutrophils # 7.6 K/mm3 (1.8-7.8); Neutrophils % 81.8 % (37.0-80.0); Platelet Count 314 K/mm3 (142-424); Red Blood Count 3.48 M/mm3 (4.20-5.40); Red Cell Distribution Width 14.4 % (11.5-17.5); White Blood Count 9.3 K/mm3 (4.8-10.8)
[2021-05-22 08:00] VITALS: BP 139/62; PULSE 78; RESP 20; TEMP 37.2; O2SAT 94
--- NOTE | 2021-05-22 08:49 | HMH.ACPN2 ---
Internal Medicine - PN: Subj *Date: 05/22/21 *Time: 08:49 Interval history: Patient feels better today, anxious to go home. Exam Vital signs and Labs for Last 24 Hours: Temp Pulse Resp BP Pulse Ox 98.1 F 91 H 16 148/66 H 95 05/22/21 04:00 05/22/21 04:00 05/22/21 04:00 05/22/21 04:00 05/22/21 04:00 Laboratory Results - last 24 hr 05/21/21 06:51: Total Counted 100, Neutrophils % (Manual) 80 H, Lymphocytes % (Manual) 14, Monocytes % (Manual) 6, Platelet Estimate Normal, RBC Morphology Normal 05/21/21 11:34: POC Glucose 118 H 05/21/21 16:01: POC Glucose 88 05/21/21 20:10: POC Glucose 115 H 05/22/21 05:36: WBC 9.3 D, RBC 3.48 L, Hgb 10.0 L D, Hct 32.5 L, MCV 93.2, MCH 28.7, MCHC 30.8 L, RDW 14.4, Plt Count 314 D, MPV 9.1, Neut % (Auto) 81.8 H, Lymph % (Auto) 11.0, [place] % (Auto) 6.0, Eos % (Auto) 1.0, Baso % (Auto) 0.1, Neut # (Auto) 7.6, Lymph # (Auto) 1.0, [place] # (Auto) 0.6, Eos # (Auto) 0.1, Baso # (Auto) 0.0 05/22/21 05:36: Sodium 130 L, Potassium 4.3, Chloride 105, Carbon Dioxide 18 L, Anion Gap 11.3, BUN 22 H D, Creatinine 1.10 H D, Estimated Creat Clear 66, Estimated GFR 48 L, Est GFR ( Amer) 58 L D, Glucose 93, Calcium 8.2 L, Total Bilirubin 0.6, AST 27 D, ALT 33 D, Alkaline Phosphatase 120, Total Protein 5.8 L, Albumin 2.9 L, Globulin 2.9, Albumin/Globulin Ratio 1.0 L Vital Signs - 24 hr 05/21/21 13:25 05/21/21 16:00 05/21/21 20:00 Temperature 98.8 F 98.3 F 97.9 F Pulse Rate [Radial] 90 82 97 H Respiratory Rate 16 16 20 Blood Pressure [Right Arm] 132/57 L 166/74 H 164/67 H 02 Sat by Pulse Oximetry 95 97 94 L 05/22/21 00:00 05/22/21 04:00 Temperature 97.6 F 98.1 F Pulse Rate [Radial] 90 91 H Respiratory Rate 17 16 Blood Pressure [Right Arm] 151/62 H 148/66 H 02 Sat by Pulse Oximetry 97 95 Microbiology 05/20/21 16:00 Blood Culture - Preliminary Blood Gram Positive Cocci 05/20/21 16:09 Urine Culture - Preliminary Urine,Clean Catch 05/20/21 16:00 Blood Culture - Preliminary Blood BLOOD CULTURES BOTH WITH PCR PRELIM POSITIVE RESULTS I & O for Last 24 hours: Intake & Output 05/19/21 05/20/21 05/21/21 05/22/21 23:59 23:59 23:59 23:59 Intake Total 2500 / 2500 120 / 120 Output Total 0 / 0 0 / 0 Balance 2500 / 2500 120 / 120 Weight 206 lb 4 oz 207 lb 3.752 oz 210 lb 6 oz Microbiology Reports for the Last 24 Hours: Microbiology 05/20/21 16:00 Blood Blood Culture - Preliminary Gram Positive Cocci 05/20/21 16:09 Urine,Clean Catch Urine Culture - Preliminary 05/20/21 16:00 Blood Blood Culture - Preliminary - Constitutional no acute distress - *Routine HEENT Exam Head: Present: normocephalic Eye: Present: EOMI, PERRL ENT: Present: mucous membranes moist - *Routine Neck Exam Present: supple. Absent: lymphadenopathy - *Routine Respiratory Exam Present: CTA bilaterally - *Routine Cardiovascular Exam Present: RRR - *Routine Abdominal Exam Present: soft, normoactive bowel sounds. Absent: tenderness - *Routine Extremities Exam Present: edema (minimal both legs). Absent: cyanosis, clubbing - *Routine Skin Exam Present: warm. 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
[2021-05-22 12:00] VITALS: BP 132/70; PULSE 82; RESP 18; TEMP 37.1; O2SAT 96
[2021-05-22 16:00] VITALS: BP 147/59; PULSE 76; RESP 16; TEMP 37; O2SAT 98
--- NOTE | 2021-05-22 19:09 | PC.NURSE ---
Pt has rested majority of this shift. Pt has been intermittently confused regarding situation this shift, but responds well to reorientation. Pt has had multiple soft BM's this shift. Pt is a standby assist to and from the bathroom w/ cane. No other acute changes or complaints, will continue to monitor.
[2021-05-22 20:00] VITALS: BP 139/55; PULSE 76; RESP 20; TEMP 36.7; O2SAT 96
[2021-05-22 21:19] LABS: POC Glucose,Bedside 107 (70-110)
[2021-05-23] VITALS: BP 138/53; PULSE 80; RESP 20; TEMP 37.1; O2SAT 98
[2021-05-23 04:00] VITALS: BP 140/55; PULSE 81; RESP 20; TEMP 37.4; O2SAT 94
[2021-05-23 04:59] VITALS: BMI 39.0
[2021-05-23 08:00] VITALS: BP 183/75; PULSE 84; RESP 17; TEMP 36.7; O2SAT 93
--- NOTE | 2021-05-23 08:22 | HMH.ACPN2 ---
Internal Medicine - PN: Subj *Date: 05/23/21 *Time: 08:22 Interval history: Patient with no new complaints, anxious to go home. Exam Vital signs and Labs for Last 24 Hours: Temp Pulse Resp BP Pulse Ox 98.1 F 84 17 183/75 H 93 L 05/23/21 08:00 05/23/21 08:00 05/23/21 08:00 05/23/21 08:00 05/23/21 08:00 Laboratory Results - last 24 hr 05/22/21 20:34: POC Glucose 107 Vital Signs - 24 hr 05/22/21 12:00 05/22/21 16:00 05/22/21 20:00 Temperature 98.7 F 98.6 F 98.0 F Pulse Rate [Radial] 82 76 76 Respiratory Rate 18 16 20 Blood Pressure [Right Arm] 132/70 147/59 H 139/55 L 02 Sat by Pulse Oximetry 96 98 96 05/23/21 00:00 05/23/21 04:00 05/23/21 08:00 Temperature 98.7 F 99.4 F 98.1 F Pulse Rate [Radial] 80 81 84 Respiratory Rate 20 20 17 Blood Pressure [Right Arm] 138/53 L 140/55 L 183/75 H 02 Sat by Pulse Oximetry 98 94 L 93 L I & O for Last 24 hours: Intake & Output 05/20/21 05/21/21 05/22/21 05/23/21 23:59 23:59 23:59 23:59 Intake Total 2500 / 2500 720 / 720 Output Total 0 / 0 0 / 0 Balance 2500 / 2500 720 / 720 Weight 206 lb 4 oz 207 lb 3.752 oz 210 lb 6 oz 212 lb 1.6 oz Microbiology Reports for the Last 24 Hours: Microbiology 05/20/21 16:00 Blood Blood Culture - Preliminary Gram Positive Cocci 05/20/21 16:09 Urine,Clean Catch Urine Culture - Preliminary 05/20/21 16:00 Blood Blood Culture - Preliminary - Constitutional no acute distress - *Routine HEENT Exam Head: Present: normocephalic Eye: Present: EOMI, PERRL ENT: Present: mucous membranes moist - *Routine Neck Exam Present: supple. Absent: lymphadenopathy - *Routine Respiratory Exam Present: CTA bilaterally - *Routine Cardiovascular Exam Present: RRR - *Routine Abdominal Exam Present: soft, normoactive bowel sounds. Absent: tenderness - *Routine Extremities Exam Present: edema (trace bilateral legs). Absent: cyanosis, clubbing - *Routine Skin Exam Present: warm. Absent: rash - *Routine Neurological Exam Present: alert, oriented X3 Assessment and Plan (1) COVID-19 Status: Acute Category: Medical Code(s): U07.1 - COVID-19 (2) Gastroenteritis Status: Acute Category: Medical Code(s): K52.9 - Noninfective gastroenteritis and colitis, unspecified (3) Chronic systolic (congestive) heart failure Status: Chronic Category: Medical Code(s): I50.22 - Chronic systolic (congestive) heart failure (4) DM (diabetes mellitus) Status: Chronic Qualifiers: Diabetes mellitus type: type 2 Diabetes mellitus intermodal owner operator truck driver insulin use: without intermodal owner operator truck driver use Diabetes mellitus complication status: without complication Qualified Code(s): E11.9 - Type 2 diabetes mellitus without complications Category: Medical Code(s): E11.9 - Type 2 diabetes mellitus without complications (5) HTN (hypertension) Status: Chronic Qualifiers: Hypertension type: essential hypertension Category: Medical Code(s): I10 - Essential (primary) hypertension (6) Renal insufficiency Status: Acute Category: Medical Code(s): N28.9 - Disorder of kidney and ureter, unspecified (7) Leukocytosis Status: Acute Category: Medical Code(s): D72.829 - Elevated white blood cell count, unspecified - Assessment and plan all Dx Assessment and Plan for all problems:: Saline lock IVF, advance diet, await blood culture results.
[2021-05-23 11:29] VITALS: BP 160/73; PULSE 98; RESP 17; TEMP 37.4; O2SAT 98
[2021-05-23 12:29] LABS: POC Glucose,Bedside 100 (70-110)
[2021-05-23 12:29] LABS: POC Glucose,Bedside 102 (70-110)
[2021-05-23 15:37] VITALS: BP 154/70; PULSE 60; RESP 16; TEMP 37.1; O2SAT 95
[2021-05-23 16:38] LABS: POC Glucose,Bedside 109 (70-110)
--- NOTE | 2021-05-27 22:26 | HMH.DCSUM ---
General - General Admission date:: 05/22/21 Discharge date: 05/23/21 HPI HPI: Ms. Mejia is a 76-year-old female with a history of type 2 diabetes mellitus, hypertension, cardiomyopathy, mild diastolic dysfunction, GERD, osteoarthritis, and lumbar disc disease who presented to [facility] with worsening abdominal pain. She states the pain started about 3 days ago. She denies having any nausea, vomiting, or diarrhea. She had a normal stool yesterday and noted no blood. She denies having a fever. She states she did have a sore throat last week and tested positive for Covid. Currently this has resolved and she denies any further upper respiratory symptoms. With evaluation in the emergency room abdominal/pelvic CT reveals no acute findings. Chest x-ray showed minimal bilateral lower opacity consistent with atelectasis, pneumonia, or scar. The patient was noted to be afebrile. White blood cell count was 19,600. Sodium was low at 133. Alkaline phosphatase was elevated at 174 with an elevated AST at 40. Covid was noted to be positive. She did have 1+ leuk esterase with urinalysis. She received a liter of IV fluids, 4 mg of morphine IV and Zofran 4 mg IV for her pain. She was then admitted for further evaluation and treatment. Patient complaint at present is that she is thirsty and wants some water or ice chips or else. She does not understand why she is n.p.o. She has minimal lower abdominal discomfort and denies nausea and vomiting. She has been up to the bathroom several times and is voiding QS. She has had no stool since admission. Again she denies any upper respiratory symptoms. Hospital Course Hospital Course: The patient was admitted and started on a PPI and continued with IV fluids at 100 an hour. One blood culture PCR was positive for staph. Rocephin was added. By 05/23/2021, the patient was feeling better and was anxious to go home. Her blood cultures seemed to be due to skin contaminant and it was felt she was stable to be discharged home without any more antibiotic treatment. Of note, her final urine culture grew out Streptococcus acidominimus and her blood cultures grew out Staph epidermidis, Aerococcus viridans, and Staphylococcus hemolyticus Objective Vital signs: Temp Pulse Resp BP Pulse Ox 98.8 F 60 16 154/70 H 95 05/23/21 15:37 05/23/21 15:37 05/23/21 15:37 05/23/21 15:37 05/23/21 15:37 Narrative: - Constitutional no acute distress - *Routine HEENT Exam Head: Present: normocephalic Eye: Present: EOMI, PERRL ENT: Present: mucous membranes moist - *Routine Neck Exam Present: supple. Absent: lymphadenopathy - *Routine Respiratory Exam Present: CTA bilaterally - *Routine Cardiovascular Exam Present: RRR - *Routine Abdominal Exam Present: soft, normoactive bowel sounds. Absent: tenderness - *Routine Extremities Exam Present: edema (trace bilateral legs). Absent: cyanosis, clubbing - *Routine Skin Exam Present: warm. Absent: rash - *Routine Neurological Exam Present: alert, oriented X3 Results Labs on day of discharge: Preliminary micro results at discharge 05/20/21 16:00 Blood Culture - Preliminary Blood Aerococcus viridans Staphylococcus epidermidis 05/20/21 16:00 Blood Culture - Preliminary Blood Staphylococcus haemolyticus DS: Diagnosis - Discharge Diagnosis (1) COVID-19 Status: Acute (2) Gastroenteritis Status: Acute (3) Chronic systolic (congestive) heart failure Status: Chronic (4) DM (diabetes mellitus) Status: Chronic (5) HTN (hypertension) Status: Chronic (6) Renal insufficiency Status: Acute (7) Leukocytosis Status: Acute Discharge Plan - Patient Discharge Instructions ACTIVITY: Continue current activity DIET: continue same diet Patient Instructions: Acute Kidney Injury, DI for Colitis, DI for COVID-19 (Suspected or Confirmed ), Nutrition and Hydration
== END 2021-05-23 17:41 | disposition home or self-care (01) | DRG 391 ==
LOC: ER 18:10 → 2ND 18:24
PROVIDERS: Admitting Provider Family Medicine; Emergency Provider Emergency Medicine; PCP Family Medicine; Visit Provider Family Medicine
DX: K52.9 Noninfective gastroenteritis and colitis, unspecified (principal); U07.1 COVID-19; I50.22 Chronic systolic (congestive) heart failure; I11.0 Hypertensive heart disease with heart failure; E11.9 Type 2 diabetes mellitus without complications; Z79.84 Long term (current) use of oral hypoglycemic drugs; E78.5 Hyperlipidemia, unspecified; M19.90 Unspecified osteoarthritis, unspecified site
CPT/HCPCS: 36415; 71045; 74176; 80048; 80053; 81001; 82962; 83605; 83690; 85007; 85025; 87040; 87077; 87086; 87088; 87186; 96365; 96367; 96375; 99284; C9803; G0378; J0696; J2405; U0003; U0005

== ENCOUNTER 2022-08-05 22:32 | Emergency (ER) | payer MEDICARE, SELFPAY ==
[2022-08-05 22:32] VITALS: BP 152/100; PULSE 110; RESP 22; TEMP 36.5; O2SAT 98; BMI 36.2
[2022-08-05 22:34] VITALS: BMI 34.4
--- NOTE | 2022-08-05 22:38 | XR_ITS ---
PROCEDURE INFORMATION: Exam: XR Left Humerus Exam date and time: 08/05/2022 11:09 PM Age: 77 years old Clinical indication: Injury or trauma; Fall; Blunt trauma (contusions or hematomas); Arm, upper; Left; Additional info: Fall, pain TECHNIQUE: Imaging protocol: Radiologic exam of the left humerus. Views: 2 or more views. COMPARISON: CR (SHOULDER INTERNAL, SHOULDER, SHOULDER INTERNAL) 07/28/2018 10:21 AM FINDINGS: Bones/joints: There is anteroinferior dislocation of the left humeral head. There is a lateral humeral head fracture likely representing the greater tuberosity. The fracture fragment measures approximately 14 x 27 mm and is displaced laterally with respect to the dislocated humeral head. The AC joint is intact. The distal humerus is normal. Soft tissues: Normal. IMPRESSION: Anteroinferior dislocation of the left humeral head with an associated displaced humeral head fracture as detailed.
--- NOTE | 2022-08-05 22:38 | CT_ITS ---
PROCEDURE INFORMATION: Exam: CT Cervical Spine Without Contrast Exam date and time: 08/05/2022 10:51 PM Age: 77 years old Clinical indication: Injury or trauma; Fall TECHNIQUE: Imaging protocol: Computed tomography of the cervical spine without contrast. Radiation optimization: All CT scans at this facility use at least one of these dose optimization techniques: automated exposure control; mA and/or kV adjustment per patient size (includes targeted exams where dose is matched to clinical indication); or iterative reconstruction. REPORTING DATA: Count of CT and Cardiac NM exams in prior 12 months: This patient has received 0 known CTs and 0 known cardiac nuclear medicine studies in the 12 months prior to the current study. COMPARISON: CR XR CHEST PORTABLE 05/20/2021 3:57 PM FINDINGS: Bones/joints: No acute fracture. Normal alignment. There is diffuse [id number] degenerative disc disease. There is severe left-sided facet arthropathy extending from the C2-C3 level through C6-C7 with severe right facet arthropathy at C6-C7 and C7-T1. No significant disc bulge or herniation. No severe spinal canal stenosis. No significant neural foraminal narrowing. Lungs: Lung apices are normal. Soft tissues: Unremarkable. IMPRESSION: 1. No acute cervical spine fracture. 2. Spondylosis as detailed.
--- NOTE | 2022-08-05 22:38 | XR_ITS ---
PROCEDURE INFORMATION: Exam: XR Pelvis Exam date and time: 08/05/2022 11:09 PM Age: 77 years old Clinical indication: Injury or trauma; Fall; Blunt trauma (contusions or hematomas); Does not apply; Pelvic region TECHNIQUE: Imaging protocol: Radiologic exam of the pelvis. Views: 1 or 2 view. COMPARISON: CT ABDOMEN PELVIS WO CON 05/20/2021 3:14 PM FINDINGS: Bones/joints: The pelvis is intact. There is no acute fracture. The SI joints, hips and pubic symphysis are normally aligned. The proximal femurs are intact without acute fracture. Soft tissues: Unremarkable. IMPRESSION: No acute fracture of the pelvis or proximal femurs.
--- NOTE | 2022-08-05 22:38 | XR_ITS ---
PROCEDURE INFORMATION: Exam: XR Left Elbow Exam date and time: 08/05/2022 11:09 PM Age: 77 years old Clinical indication: Injury or trauma; Fall; Blunt trauma (contusions or hematomas); Arm, upper; Left; Additional info: Fall, pain TECHNIQUE: Imaging protocol: Radiologic exam of the left elbow. Views: 3 or more views. COMPARISON: CR (SHOULDER INTERNAL, SHOULDER, SHOULDER INTERNAL) 07/28/2018 10:21 AM FINDINGS: Bones/joints: The elbow is normally aligned. There is no acute fracture or significant degenerative change. No joint effusion is evident. Soft tissues: Normal. IMPRESSION: No acute fracture of the left elbow.
--- NOTE | 2022-08-05 22:38 | XR_ITS ---
PROCEDURE INFORMATION: Exam: XR Left Shoulder Exam date and time: 08/05/2022 11:09 PM Age: 77 years old Clinical indication: Injury or trauma; Fall; Blunt trauma (contusions or hematomas); Arm, upper; Left; Additional info: Fall, pain TECHNIQUE: Imaging protocol: Radiologic exam of the left shoulder. Views: 2 or more views. COMPARISON: CR (SHOULDER INTERNAL, SHOULDER, SHOULDER INTERNAL) 07/28/2018 10:21 AM FINDINGS: Bones/joints: There is anteroinferior dislocation of the left humeral head. There is a displaced humeral head fracture likely representing of the greater tuberosity. Fracture fragment measures approximate 14 x 27 mm. The fragment is laterally displaced with respect to the humeral head. A discrete glenoid fracture is not evident. The AC joint is intact. Soft tissues: Normal. IMPRESSION: Anteroinferior dislocation of the left humeral head with an associated displaced fracture as detailed.
--- NOTE | 2022-08-05 22:38 | CT_ITS ---
PROCEDURE INFORMATION: Exam: CT Head Without Contrast Exam date and time: 08/05/2022 10:51 PM Age: 77 years old Clinical indication: Injury or trauma; Fall TECHNIQUE: Imaging protocol: Computed tomography of the head without contrast. Radiation optimization: All CT scans at this facility use at least one of these dose optimization techniques: automated exposure control; mA and/or kV adjustment per patient size (includes targeted exams where dose is matched to clinical indication); or iterative reconstruction. REPORTING DATA: Count of CT and Cardiac NM exams in prior 12 months: This patient has received 0 known CTs and 0 known cardiac nuclear medicine studies in the 12 months prior to the current study. COMPARISON: No relevant prior studies available. FINDINGS: Brain: There is age related atrophy. No hemorrhage. There is prominent periventricular white matter hypodensity consistent with chronic small vessel disease. No mass effect. Cerebral ventricles: No ventriculomegaly. Paranasal sinuses: Visualized sinuses are unremarkable. No fluid levels. Mastoid air cells: Visualized mastoid air cells are well aerated. Orbital cavities: The orbital contents are symmetric and normal. Bones/joints: Unremarkable. No acute fracture. Soft tissues: Unremarkable. IMPRESSION: 1. No acute intracranial abnormality. 2. Age-related atrophy and findings consistent with prominent chronic small vessel disease.
--- NOTE | 2022-08-05 22:38 | XR_ITS ---
PROCEDURE INFORMATION: Exam: XR Chest Exam date and time: 08/05/2022 11:09 PM Age: 77 years old Clinical indication: Injury or trauma; Fall; Blunt trauma (contusions or hematomas) TECHNIQUE: Imaging protocol: Radiologic exam of the chest. Views: 1 view. COMPARISON: CR XR CHEST PORTABLE 05/20/2021 3:57 PM FINDINGS: Lungs: Unremarkable. No consolidation. Pleural spaces: Unremarkable. No pleural effusion. No pneumothorax. Heart/Mediastinum: Unremarkable. No cardiomegaly. Vasculature: Unremarkable. Bones/joints: There are significant degenerative changes of the mid to lower thoracic spine. There is no acute fracture evident. There is left glenohumeral joint dislocation. IMPRESSION: 1. No acute cardiopulmonary findings. 2. Left glenohumeral joint dislocation.
[2022-08-05 22:55] LABS: Basophils # 0.1 K/mm3 (0-0.2); Basophils % 0.6 % (0.1-2.0); Eosinophils # 0.3 K/mm3 (0.0-0.4); Eosinophils % 2.4 % (0.1-12.0); Hematocrit 38.8 % (37.0-47.0); Hemoglobin 12.4 g/dL (12.2-16.2); Lymphocytes # 3.3 K/mm3 (0.7-4.5); Lymphocytes % 28.4 % (10-50); Mean Corpuscular HGB Conc 31.8 g/dL (31.8-35.4); Mean Corpuscular Volume 84.7 fl (81-99); Mean Platelet Volume 8.6 fl (7.4-10.4); Monocytes # 0.6 K/mm3 (0.1-1.0); Monocytes % 5.2 % (1.7-9.3); Neutrophils # 7.4 K/mm3 (1.8-7.8); Neutrophils % 63.4 % (37.0-80.0); Platelet Count 368 K/mm3 (142-424); Red Blood Count 4.58 M/mm3 (4.20-5.40); White Blood Count 11.6 K/mm3 (4.8-10.8)
[2022-08-05 22:59] LABS: Alanine Aminotransferase 24 U/L (12-78); Albumin Level 4.2 g/dl (3.5-5.0); Albumin/Globulin Ratio 1.3 (1.1-1.8); Alkaline Phosphatase 159 U/L (38-126); Anion Gap 19.4 mEq/L (5-15); Aspartate Amino Transferase 31 U/L (14-36); Bilirubin,Total 0.3 mg/dl (0.2-1.3); Blood Urea Nitrogen 42 mg/dl (7-17); Calcium 9.4 mg/dl (8.4-10.2); Carbon Dioxide 23 mmol/L (22.0-30.0); Chloride 98 mmol/L (98-107); Creatinine Clearance Estimated 40 mL/min (50-200); Estimated Glomerular Filt Rate 31 ml/min (>60); GFR (African American) 38 ML/MIN (>60); Globulin 3.3 g/dL (1.3-3.2); Glucose 133 mg/dl (74-100); Potassium 4.4 mmoL/L (3.5-5.1); Sodium 136 mmol/L (136-145); Total Protein,Serum 7.5 g/dl (6.3-8.2)
--- NOTE | 2022-08-05 23:07 | PC.NURSE ---
patient gone to RAD.
--- NOTE | 2022-08-05 23:23 | HMH.EDFALL ---
Discharge Plan Disposition Patient Disposition: Home, Self-Care Chief Complaint: Fall Prescriptions Prescriptions: No Action multivitamin tablet 1 tab PO DAILY omeprazole 20 mg capsule,delayed release(DR/EC) 20 mg PO DAILY carvedilol [Coreg] 6.25 mg tablet 6.25 mg PO BID metformin 500 mg tablet 500 mg PO BID hydrochlorothiazide 25 mg tablet 25 mg PO BID Label Comments: TAKE 1 TABLET BY MOUTH ONCE DAILY Farxiga 10 mg tablet 10 mg PO DAILY Label Comments: TAKE 1 TABLET BY MOUTH ONCE DAILY Referrals Follow up/Referrals: Harry Torres MD [Primary Care Provider] - See instructions Brian Marcano DO [Staff Physician] - See instructions Clinical Impressions Clinical Impression: Anterior shoulder dislocation, Renal insufficiency, LBBB (left bundle branch block), Fracture, humerus closed, Fall Instructions Patient Instructions: DI for Shoulder Dislocation Discharge ED Provider: Dana (ED)Kulwant HPI General Chief Complaint: Fall Stated Complaint: Fall, L shoulder/arm pain Time Seen by Provider: 08/05/22 23:23 Mode of Arrival: EMS Source of Information: Patient, Spouse, EMS and Medical Record Limitations: No Limitations Description of Symptoms (Recalled from ER Triage Doc. by RN): pt states was walking in garage and tripped over something falling and landing on lt side. pt c/o lt arm pain. pt denies loc History of Present Illness HPI Narrative: trip type fall with acute lt shoulder injury - no loc or other c/o complaint: fall Onset (ago): hour(s) Fall from: standing Fall witnessed: yes, by family Place fall occurred: home Loss of consciousness: none Prolonged down time: no Context: tripped/slipped Location of injury: head and neck Location of injury - extremities: Left: shoulder Severity: moderate Associated symptoms (after fall): denies Related Data Home Medications Medication Instructions Recorded Confirmed carvedilol 6.25 mg tablet (Coreg) 6.25 mg PO BID High blood pressure 08/19/17 08/05/22 metformin 500 mg tablet 500 mg PO BID Diabetes 08/19/17 08/05/22 multivitamin 1 tab PO DAILY Supplement 08/19/17 08/05/22 omeprazole 20 mg capsule,delayed 20 mg PO DAILY GERD 08/19/17 08/05/22 release dapagliflozin 10 mg tablet 10 mg PO DAILY kidneys 08/05/22 08/05/22 (Farxiga) hydrochlorothiazide 25 mg tablet 25 mg PO BID High blood pressure 08/05/22 08/05/22 Allergies Allergy/AdvReac Type Severity Reaction Status Date / Time DON Inhibitors Allergy Mild Unknown Verified 05/21/21 04:49 allergy reaction NSAIDS (Non-Steroidal Allergy Mild Unknown Verified 05/21/21 04:49 Anti-Inflamma allergy reaction Jeqaqvu-CSE-OrW Reductase Allergy Mild Unknown Verified 09/05/20 09:03 Inhibitor allergy [Twqfepn-Mhy-Uoe Reductase reaction Inhibitor] [facility] Disclaimer: The information contained in this section may have been updated after the patient was seen, as this information can be updated by other users. Medical History (Updated 08/06/22 @ 01:14 by Kulwant Cortez (ED)MD) Cardiomyopathy LBBB (left bundle branch block) Social History Smoking Status: Former smoker pack-years: 10 second hand exposure: No alcohol intake: never substance use type: denies use current occupational status: retired Travel in the last 8 weeks: None household members: spouse housing: house current occupational exposures/hazards: No caffeine: Yes ROS Obtained: Yes All systems reviewed & no additional complaints except as documented Physical Exam General General appearance: alert Head Head exam: normocephalic Eye Eye exam: Present PERRL and EOMI ENT ENT exam: Present mucous membranes moist Neck Neck exam: Present trachea midline Respiratory Respiratory exam: Present normal lung sounds bilaterally; Absent respiratory distress Cardiovascular Cardiovascular exam: Present regular rate and sys
[2022-08-05 23:31] VITALS: BP 130/74; PULSE 105; RESP 36; O2SAT 96
--- NOTE | 2022-08-05 23:35 | ECG_ITS ---
APPROVED REPORT Exam: Resting ECG HR:98 bpm ECG Measurements Heart Rate 98 AXES OK 153 P 66 QRSd 148 QRS -1 QT 389 T 119 QTc 445 Conclusion SINUS RHYTHM WITH FREQUENT SUPRAVENTRICULAR PREMATURE COMPLEXES LEFT BUNDLE BRANCH BLOCK [120+ ms QRS DURATION, 80+ ms Q/S IN V1/V2, 85+ ms R IN I/aVL/V5/V6] ABNORMAL ECG UNCONFIRMED REPORT Electronically signed by : Samir Patton MD 08/06/2022 20:10:46
[2022-08-05 23:50] VITALS: BP 156/100; PULSE 95; RESP 16; O2SAT 97
[2022-08-05 23:55] VITALS: BP 130/74; PULSE 92; RESP 16; O2SAT 93
[2022-08-05 23:59] VITALS: BP 139/66; PULSE 70; RESP 20; O2SAT 90
[2022-08-06] VITALS (16 sets, daily range): BP systolic 106–146; BP diastolic 44–86; PULSE 68–111; RESP 14–22; TEMP 36.5; O2SAT 85–98
--- NOTE | 2022-08-06 00:01 | XR_ITS ---
PROCEDURE INFORMATION: Exam: XR Left Shoulder Exam date and time: 08/06/2022 12:17 AM Age: 77 years old Clinical indication: Abnormal findings; Abnormal imaging study of the limbs; Lt shoulder; Additional info: Post reduction TECHNIQUE: Imaging protocol: Radiologic exam of the left shoulder. Views: 1 view. COMPARISON: CR XR SHOULDER LT MIN 2V 08/05/2022 11:09 PM FINDINGS: Bones/joints: Left humeral head dislocation has been reduced. The humeral head is appropriately positioned on this single view. The greater tuberosity fracture has been reduced as well and is now appropriately positioned. The subacromial space is preserved. AC joint remains intact. No definitive glenoid fracture is evident. Soft tissues: Normal. IMPRESSION: Reduction of the left humeral head dislocation with anatomic alignment noted. Greater tuberosity fracture is reduced as well.
== END 2022-08-06 01:37 | disposition home or self-care (01) ==
PROVIDERS: Emergency Provider Emergency Medicine; PCP Family Medicine
DX: S42.202A Unspecified fracture of upper end of left humerus, initial encounter for closed fracture (principal); S43.016A Anterior dislocation of unspecified humerus, initial encounter; I44.7 Left bundle-branch block, unspecified; W01.0XXA Fall on same level from slipping, tripping and stumbling without subsequent striking against object, initial encounter; Z87.891 Personal history of nicotine dependence
CPT/HCPCS: 23650; 70450; 71045; 72125; 72170; 73020; 73030; 73060; 73080; 80053; 85025; 93005; 96361; 96374; 96375; 96376; 99152; 99285; J2405

== ENCOUNTER → 2022-09-05 08:57 | Outpatient (CLI) | payer MEDICARE, SELFPAY ==
--- NOTE | 2022-09-05 09:01 | XR_ITS ---
FINAL REPORT CLINICAL HISTORY: lt shoulder dislocation COMPARISON: 08/05/2022 FINDINGS: Left shoulder Three views were obtained. There is a comminuted fracture of the humeral head without evidence of dislocation. There is mild AC joint degenerative change. No soft tissue abnormality is identified. IMPRESSION: Comminuted fracture of the humeral head. Reviewed, Interpreted and Dictated by Kit Lemos III, MD Transcribed by Sendy Umana Authenticated and [facility]
== END ==
PROVIDERS: PCP Family Medicine; Visit Provider Orthopaedic Surgery
DX: M25.512 Pain in left shoulder; S43.012A Anterior subluxation of left humerus, initial encounter
CPT/HCPCS: 73030

== ENCOUNTER → 2022-10-01 08:29 | Outpatient (CLI) | payer MEDICARE, SELFPAY ==
--- NOTE | 2022-10-01 08:39 | XR_ITS ---
FINAL REPORT CLINICAL HISTORY: lt shoulder dislocation COMPARISON: 09/05/2022 FINDINGS: LEFT SHOULDER SERIES Three views of the left shoulder were obtained. There is a fracture of the lateral humeral head with bony fragment superior to the humeral head. There is mild acromioclavicular joint degenerative change. No dislocation is seen. The joint spaces are preserved. There is no soft tissue abnormality. IMPRESSION: Fracture of the lateral humeral head with bony fragment superior to the humeral head. Mild degenerative change of the acromioclavicular joint. Reviewed, Interpreted and Dictated by Kit Lemos III, MD Transcribed by Ryan Crane Authenticated and [facility]
== END ==
PROVIDERS: PCP Family Medicine; Visit Provider Orthopaedic Surgery
DX: S43.005A Unspecified dislocation of left shoulder joint, initial encounter (principal); M25.512 Pain in left shoulder; W19.XXXA Unspecified fall, initial encounter
CPT/HCPCS: 73030

== ENCOUNTER → 2023-01-07 08:26 | Outpatient (CLI) | payer MEDICARE, SELFPAY ==
--- NOTE | 2023-01-07 08:32 | XR_ITS ---
FINAL REPORT CLINICAL HISTORY: lt shoulder pain COMPARISON: None FINDINGS: LEFT SHOULDER Three views demonstrate no acute fracture or dislocation. There is mild degenerative change of the acromioclavicular joint as well as mild degenerative change of the glenohumeral joint. There is a chronic fracture of the proximal humerus, with chronic bony fracture fragments or loose bodies measuring up to 3.2 cm in size, superior to the humeral head. The visualized bony structures are well aligned. No soft tissue abnormality is seen. IMPRESSION: Mild acromioclavicular and glenohumeral degenerative change. Chronic fracture proximal humerus as described, with chronic fragments or loose bodies as described. Reviewed, Interpreted and Dictated by Kit Lemos III, MD Transcribed by Cynthia Heard Authenticated and [facility]
== END ==
PROVIDERS: PCP Family Medicine; Visit Provider Orthopaedic Surgery
DX: S42.252D Displaced fracture of greater tuberosity of left humerus, subsequent encounter for fracture with routine healing (principal); Y99.9 Unspecified external cause status
CPT/HCPCS: 73030

== ENCOUNTER 2023-01-13 14:00 | Outpatient (RCR) | payer MEDICARE, SELFPAY ==
--- NOTE | 2022-11-12 16:11 | HMH.OTOPEV ---
OT Inpatient Evaluation Rehab OT Outpatient Eval Start: 11/12/22 15:07 Freq: Status: Active Protocol: Document 11/12/22 15:08 SERJIODEYA (Rec: 11/12/22 16:11 [email or web address] [id number]) E-signed By Vijaya Reyes, OT Outpatient Therapy Subjective History Subjective History 77 year old female referred to skilled OP OT services for L shld dislocation. On August 05, Patient had a fall resulting in L shld dislocation and Fracture of the lateral humeral head with bony fragment superior to the humeral head. Mild degenerative change of the acromioclavicular joint. Patient is currently 14 weeks out from initial injury. Chief Complaint Pain,Weakness Symptom Type Ache,Throb Symptoms Relieved By Nothing Symptoms Aggravated By Physical Activity Prior Functional Limitations None Current Functional Limitations Reaching,Lifting,Recreation Activity Symptom Description Constant and Continuous Level of pain today (0-10) 6 Pain scale - at its best (0-10) 6 Pain scale - at its worst (0-10) 6 Shoulder/Elbow Eval Shoulder Objective Measurements Shoulder ROM Left Shoulder Abduction Active Range of 30 Motion (degrees) Shoulder Flexion Active Range of Motion 35 (degrees) Query Text: Shoulder External Rotation Active Range 0 of Motion (degrees) Shoulder Internal Rotation Active Range 0 of Motion (degrees) pain with active ROM shoulder exam left standard Shoulder MMT Shoulder Abduction Strength Grade 2+ Poor+ Shoulder Extension Strength Grade 2+ Poor+ Shoulder Flexion Strength Grade 2+ Poor+ Shoulder Horizontal Abduction Strength 2+ Poor+ Grade Shoulder Horizontal Adduction Strength 2+ Poor+ Grade Infraspinatus/Teres Minor Strength Grade 2+ Poor+ Shoulder External Rotation Strength 2+ Poor+ Grade Shoulder Internal Rotation Strength 2+ Poor+ Grade Elbow Objective Measurements OT Outpatient Assessment Impairments Problems/Impairments Impaired Range of Motion, Impaired Strength,Subjective C /O Pain Prognosis Rehab Potential Good Clinical Impression Consistent with Diagnosis Yes Short Term Goals Number of Weeks
== END 2023-01-13 14:05 | disposition home or self-care (01) ==
LOC: OT 14:00
PROVIDERS: PCP Family Medicine; Visit Provider Orthopaedic Surgery
DX: S43.005A Unspecified dislocation of left shoulder joint, initial encounter (principal)
CPT/HCPCS: 97010; 97014; 97035; 97110; 97140; 97164; 97165; 97530; G0283

== ENCOUNTER 2025-03-13 15:48 | Emergency (ER) | payer MEDICARE, SELFPAY ==
--- OUTSIDE RECORDS SUMMARY | 2024-02-12 04:45 | XMS_ITS ---
Author Organization [facility] Address [address] [facility] [address] [place] [id number] Care Team Providers Care Cracker Sprayer Name Role Phone Harry Torres Primary Care Provider Allergies Allergen (clinical drug ingredient) Drug/Non Drug Allergy documented on EMR Reaction Allergy Type Onset Date Status Substance with 8-jtdxjbz-6-methylgluta ryl-coenzyme A reductase inhibitor mechanism of action (substance) Statins Myalgias Drug Allergy Active Results Component Value Reference Range Notes Glucose (In-House) Reviewed date:02/13/2024 09:47:32 AM Interpretation:142 Performing Lab: Notes/Report: 142 blood glucose 142 74 - 106 mg/dL Glycohemoglobin A1c (in hous e) Reviewed date:02/13/2024 09:47:32 AM Interpretation:5.3 Performing Lab: Notes/Report: 5.3 glycohemoglobin 5.3% 5 - 6.5 % P-Comprehensive Metabolic Pa andi (CMP) Reviewed date:02/13/2024 09:47:32 AM Interpretation:co2- 21, bun 33, Cr 1.4, gfr 38, alk phos 150 Performing Lab: Notes/Report: Test performed by [facility] , [address], [place] [address] Indio Arias MD, Director Fundraising CLIA: [id number] Sodium 141 135-145 mmol/L Potassium 5.3 3.5-5.3 mmol/L Chloride 107 97-108 mmol/L CO2 21 22-32 mmol/L Glucose 97 65-99 mg/dL BUN 33 8-23 mg/dL Creatinine 1.40 0.50-1.00 mg/dL Calcium 9.7 8.6-10.4 mg/dL eGFR by Creatinine 38 >59 mL/min/1.73m2 Protein 7.0 6.0-8.3 g/dL Albumin 4.4 3.5-5.3 g/dL Alkaline Phosphatase 150 35-121 IU/L ALT (SGPT) 14 <5-47 IU/L AST (SGOT) 20 <5-40 IU/L Bilirubin, Total 0.3 <0.2-1.2 mg/dL A/G Ratio 1.7 1.1-2.5 P-Lipid Panel Reviewed date:02/13/2024 09:47:32 AM Interpretation:chol 212, non-hdl 155, ldl 132 Performing Lab: Notes/Report: Test performed by [facility], [address] , [address], [place] [address] Indio Arias MD, Director Fundraising CLIA: [id number] Cholesterol 212 <200 mg/dL Triglycerides 115 <150 mg/dL HDL Cholesterol 57 >39 mg/dL Cholesterol / HDL Ratio 3.72 0.00-4.44 Ratio Non-HDL Cholesterol 155 <130 mg/dL LDL Cholesterol (Calculation) 132 <130 mg/dL LDL Cholesterol Levels* Less than 100 mg/dL Optimal 100 to 129 mg/dL Near Optimal/ Above Optimal 130 to 159 mg/dL Borderline High 160 to 189 mg/dL High 190 mg/dL and above Very High * Categories as recommended by the 2004 ATPIII guidelines LDL/HDL Ratio 2.3 <3.3 Ratio LDL Cholesterol Patient History Test Date: 02/12/2023 LDL Results: 156 Units: mg/dL % Change: - Test Date: 02/12/2024 LDL Results: 132 Units: mg/dL % Change: -15% P-Phosphorus Reviewed date:02/13/2024 09:47:32 AM Interpretation:Normal Performing Lab: Notes/Report: Test performed by [facility] [address] [place] [address] , [place] [address] Indio Arias MD, Director Fundraising CLIA: [id number] Phosphorus 3.7 2.5-4.5 mg/dL P-TSH reflex to FT4 Reviewed date:02/13/2024 09:47:32 AM Interpretation:Normal Performing Lab: Notes/Report: Test performed by [facility] [address] , [address], [place] [address] Indio Arias MD, Director Fundraising CLIA: [id number] TSH reflex to FT4 3.10 0.43-5.25 mU/L P-Microalbumin/Creatinine, R andom Urine Sample Reviewed date:02/13/2024 09:47:32 AM Interpretation:satisfactory Performing Lab: Notes/Report: Test performed by [facility] [address] [place] [address] , [place] [address] Indio Arias MD, Director Fundraising CLIA: [id number] Albumin/Creatinine Ratio, Urine See Comment 0-30 ug/mg Unable to calculate Urine Albumin/Creatinine Ratio when urine creatinine or urine albumin fall outside established reportable range. Microalbumin, Urine, Random <0.3 Creatinine, Urine 114.4 P-Vitamin D 25-Hydroxy Reviewed date:02/13/2024 09:47:32 AM Interpretation:Normal Performing Lab: Notes/Report: Test performed by [facility] [address] [place] [address] , [address], [place] [address] Indio Arias MD, Director Fundraising CLIA: [id number] Vitamin D 25-Hydroxy 84.4 30.0-100.0 ng/mL Interpretation of Vitamin D 25 [place]: < 20 ng/mL - Deficiency 20 - 29 ng/mL - Insufficiency 30 - 100 ng/mL - Sufficiency > 100 ng/mL - Super-therapeutic- toxicity may occur above this level. Clinical correlation required. REASON FOR VISIT 6 month f/u Medications Medication SIG (Take, Route, Frequency, Duration) Notes Start Date End Date Status traMADol HCl 50 MG 1 tablet as needed O rally Once a day Active metFORMIN HCl ER 500 MG TAKE 2 TABLETS B Y MOUTH ONCE DAILY WITH EVENING MEAL Active Farxiga 10 MG Take 1 tablet by miguel th once daily for 90 days Active Carvedilol 6.25 MG 1 tablet with food O rally Twice a day Active Omeprazole 20 MG Take 1 capsule by mo uth once daily; Duration: 90 days Active hydroCHLOROthiazide 25 MG 1 tablet in th e morning Orally Once a day Active Losartan Potassium 100 MG 1 tab(s) orally once a day Active Vital Signs Weight 207.2 lbs 02/12/2024 Blood pressure systolic 142 mm Hg 02/12/20 24 Blood pressure diastolic 82 mm Hg 024 Heart Rate 63 /min 02/12/2024 Height 68.50 in 02/12/2024 BMI 31.04 kg/m2 02/12/2024 Encounters Encounter Location Date Provider Diagnosis [facility] [address] [facility] [address] [place], [place] [phone] 02/12/2024 Harry Torres Type 2 diabetes dandy itus without complication, without long-term current use of insulin E11.9 ; Essential hypertension I10 ; Hyperlipidemia, unspecified hyperlipidemia E78.5 ; Vitamin D deficiency E55.9 ; Stage 3b chronic kidney disease N18.32 and Non morbid obesity E66.9 Assessments Encounter Date Diagnosis (ICD Code) Assessment Notes Treatment Notes Treatment Clinical Notes Section Notes 02/12/2024 Type 2 diabetes mellitus without complication, without long-term current use of insulin (ICD-10 - E11.9) 02/12/2024 Essential hypertension (ICD-10 - I10) 02/12/2024 Hyperlipidemia, unspecified hyperlipidemia (ICD-10 - E78.5) 02/12/2024 Vitamin D deficiency (ICD-10 - E55.9) 02/12/2024 Stage 3b chronic kidney disease (ICD-10 - N18.32) 02/12/2024 Non morbid obesity (ICD-10 - E66.9) Plan Of Treatment Medication Medication Name Sig Start Date Stop Date Notes metFORMIN HCl ER 500 MG TAKE 2 TABLETS B Y MOUTH ONCE DAILY WITH EVENING MEAL Farxiga 10 MG Take 1 tablet by miguel th once daily for 90 days Carvedilol 6.25 MG 1 tablet with food O rally Twice a day hydroCHLOROthiazide 25 MG 1 tablet in th e morning Orally Once a day Losartan Potassium 100 MG 1 tab(s) orally once a day Next Appt Details Follow Up: 6 Months, Reason: Provider Name:Harry Wiseman , 08/16/2025 09:45:00 AM, [address] [facility], [address] , [place], [place], [id number], Progress Notes * Vladimir DOMINGUEZOB:1945 ( 80 yo F)Acc No.[id number]:02/12/2024 Progress Notes Patient: Coco LEAL Provider: Purvi Torres M.D. :1945 A ge:78 Y S ex:Female Date:02/12/2024 Address:[address] [place] [address] RAUL E[place], [id number] Subjective: * Chief Complaints: * 1 . 6 month f/u. * HPI: C ardiology: 78 year old female presents with c/o Blood Pressure Elevated? Pt here for 6 mo f/u on hypertension, states she is doing well and does not have any concerns. c/o Hyperlipidemia P t is fasting today. E ndocrinology: c/o Recent Blood Sugars P t here to f/u on DM 2, pt states that she does not check blood sugar at home. * ROS: D ERMATOLOGY: no R dago. n o H domenic. G ASTROENTEROLOGY: no N ausea. n o V omiting. U ROLOGY: no D ifficulty urinating. n o B lood in urine. * Medical History: T ype 2 Diabetes, Hypertension, LT Heart Cath, Cardiomyopathy, 07/2017, Congestive Heart Failure, EF = 40%, 07/2017, Echo with 55% EF, 10/02/2007, Heart Cath, Mild Diastolic Sysfunction, EF=45%, 2003, Esophageal Reflux, Osteoarthritis, Lumbar Disc Disease. * Surgical History: C ataract Removal 1998, [place] Tooth Removal 03/2010, [place] Tooth Removal 03/21/2011, RT Knee Replacement 04/17/2011. * Hospitalization/Major Diagno stic Procedure: [facility]aleb Lowery in [place] for knee surgery 04/17/2011, [facility] ER - Dislocated Left Shoulder 08/05/2022. * Family History: F ather: . M other: . 1 son(s) - healthy. . * Social History: C URRENT TOBACCO USE S moking Status: Patient does NOT smoke. C affeine: yes, frequency: once a day. Exercise: no. Marital Status: . Past smoking status: no, Smoking status: Does not smoke. Alcohol: No. * Medications: T aking traMADol HCl 50 MG Tablet 1 tablet as needed Orally Once a day , Taking hydroCHLOROthiazide 25 MG Tablet 1 tablet in the morning Orally Once a day , Taking Farxiga 10 MG Tablet Take 1 tablet by mouth once daily for 90 days , Taking Carvedilol 6.25 MG Tablet 1 tablet with food Orally Twice a day , Taking metFORMIN HCl ER 500 MG Tablet Extended Release 24 Hour TAKE 2 TABLETS BY MOUTH ONCE DAILY WITH EVENING MEAL , Taking Omeprazole 20 MG Capsule Delayed Release Take 1 capsule by mouth once daily , Taking Losartan Potassium 100 MG Tablet 1 tab(s) orally once a day , Medication List reviewed and reconciled with the patient * Allergies: S tatins: Myalgias - Side Effects. Objective: * Vitals: W t:207.2, Temp:97.8, BP:142/82, HR:63, O2 Sat:98% on RA, Nurse:karl, Ht: 68.50, BMI:31.04. * Examination: C ardiology: General Appearance: p leasant, NAD, using a cane to assist with ambulation. H EENT: u nremarkable. H eart sounds: R RR, normal S1, S2. L ungs: c lear, no rales or wheezes. E xtremities: n o leg edema. P eripheral pulses:? 2 plus bilateral. Assessment: * Assessment: 1. T ype 2 diabetes mellitus without complication, without long-term current use of insulin - E11.9 (Primary) 2 . E ssential hypertension - I10 3 . H yperlipidemia, unspecified hyperlipidemia - E78.5 4 . V itamin D deficiency - E55.9 5. S tage 3b chronic kidney disease - N18.32 6 . N on morbid obesity - E66.9 Plan: * Treatment: Value Reference Range A /G Ratio 1.7 1.1-2.5 - * A lbumin 4.4 3.5-5.3 - g/dL * A lkaline Phosphatase 150 H 35-121 - IU/L * A LT (SGPT) 14 <5-47 - IU/L * A ST (SGOT) 20 <5-40 - IU/L * B ilirubin, Total 0.3 <0.2-1.2 - mg/dL * B UN 33 H 8-23 - mg/dL * C alcium 9.7 8.6-10.4 - mg/dL * C hloride 107 97-108 - mmol/L * C O2 21 L 22-32 - mmol/L * C reatinine 1.40 H 0.50-1.00 - mg/dL * G lucose 97 65-99 - mg/dL * P otassium 5.3 3.5-5.3 - mmol/L * S odium 141 135-145 - mmol/L * P rotein 7.0 6.0-8.3 - g/dL * e GFR by Creatinine 38 L >59 - mL/min/1.73m2 * Janell Vera 02/13/2024 9:47 :24 AM >See phone encounter ?LAB: P-Microalbumin/Creatinine, Random Urine Sample (Collection Date & Time - 02/12/2024 09:05 AM)?satisfactory* Value Reference Range A lbumin/Creatinine Ratio, Urine See Comment L 0-30 - ug /mg * C reatinine, Urine 114.4 - mg/dL * M icroalbumin, Urine, Random <0.3 - mg/dL * Janell Vera 02/13/2024 9:47 :24 AM >See phone encounter ?LAB: Glucose (In-House) (Collection Date & Time - 02/12/2024)?142* Value Reference Range b lood glucose 142 74 - 106 mg/dL * Stu Millerira 02/12/2024 10:27: 45 AM > Janell Vera 02/13/2024 9:47:24 AM >See phone encounter ?LAB: Glycohemoglobin A1c (in house) (Collection Date & Time - 02/12/2024)? 5.3* Value Reference Range g lycohemoglobin 5.3% 5 - 6.5 % * Stu Millerira 02/12/2024 10:34: 28 AM > Janell Vera 02/13/2024 9:47:24 AM >See phone encounter 2.?Essential hypertension? Continue hydroCHLOROthiazide Tablet, 25 MG, 1 tablet in the morning, Orally, Once a day;?Continue Losartan Potassium Tablet, 100 MG, 1 tab(s), orally, once a day;?Continue Carvedilol Tablet, 6.25 MG, 1 tablet with food, Orally, Twice a day.?LAB: P-Comprehensive Metabolic Panel (CMP) (Collection Date & Time - 02/12/2024 09:05 AM)?co2- 21, bun 33, Cr 1.4, gfr 38, alk phos 150* Value Reference Range A /G Ratio 1.7 1.1-2.5 - * A lbumin 4.4 3.5-5.3 - g/dL * A lkaline Phosphatase 150 H 35-121 - IU/L * A LT (SGPT) 14 <5-47 - IU/L * A ST (SGOT) 20 <5-40 - IU/L * B ilirubin, Total 0.3 <0.2-1.2 - mg/dL * B UN 33 H 8-23 - mg/dL * C alcium 9.7 8.6-10.4 - mg/dL * C hloride 107 97-108 - mmol/L * C O2 21 L 22-32 - mmol/L * C reatinine 1.40 H 0.50-1.00 - mg/dL * G lucose 97 65-99 - mg/dL * P otassium 5.3 3.5-5.3 - mmol/L * S odium 141 135-145 - mmol/L * P rotein 7.0 6.0-8.3 - g/dL * e GFR by Creatinine 38 L >59 - mL/min/1.73m2 * Janell Vera 02/13/2024 9:47 :24 AM >See phone encounter 3.?Hyperlipidemia, unspecified hyperlipidemia?LAB: P-Comprehensive Metabolic Panel (CMP) (Collection Date & Time - 02/12/2024 09:05 AM)?co2- 21, bun 33, Cr 1.4, gfr 38, alk phos 150* Value Reference Range A /G Ratio 1.7 1.1-2.5 - * A lbumin 4.4 3.5-5.3 - g/dL * A lkaline Phosphatase 150 H 35-121 - IU/L * A LT (SGPT) 14 <5-47 - IU/L * A ST (SGOT) 20 <5-40 - IU/L * B ilirubin, Total 0.3 <0.2-1.2 - mg/dL * B UN 33 H 8-23 - mg/dL * C alcium 9.7 8.6-10.4 - mg/dL * C hloride 107 97-108 - mmol/L * C O2 21 L 22-32 - mmol/L * C reatinine 1.40 H 0.50-1.00 - mg/dL * G lucose 97 65-99 - mg/dL * P otassium 5.3 3.5-5.3 - mmol/L * S odium 141 135-145 - mmol/L * P rotein 7.0 6.0-8.3 - g/dL * e GFR by Creatinine 38 L >59 - mL/min/1.73m2 * Janell Vera 02/13/2024 9:47 :24 AM >See phone encounter ?LAB: P-Lipid Panel (Collection Date & Time - 02/12/2024 09:05 AM)?chol 212, non-hdl 155, ldl 132* Value Reference Range C holesterol / HDL Ratio 3.72 0.00-4.44 - Ratio * C holesterol 212 H <200 - mg/dL * H DL Cholesterol 57 >39 - mg/dL * L DL Cholesterol (Calculation) 132 H <130 - mg/d L * L DL/HDL Ratio 2.3 <3.3 - Ratio * N on-HDL Cholesterol 155 H <130 - mg/dL * T riglycerides 115 <150 - mg/dL * JodyJanell leonard 02/13/2024 9:47 :24 AM >See phone encounter ?LAB: P-TSH reflex to FT4 (Collection Date & Time - 02/12/2024 09:05 AM)? Normal* Value Reference Range T SH reflex to FT4 3.10 0.43-5.25 - mU/L * Janell Vera 02/13/2024 9:47 :24 AM >See phone encounter 4.?Vitamin D deficiency?LAB: P-Vitamin D 25-Hydroxy (Collection Date & Time - 02/12/2024 09:05 AM)? Normal* Value Reference Range V itamin D 25-Hydroxy 84.4 30.0-100.0 - ng/mL * Jody,Janell 02/13/2024 9:47 :24 AM >See phone encounter 5.?Stage 3b chronic kidney disease?LAB: P-Phosphorus (Collection Date & Time - 02/12/2024 09:05 AM)?Normal* Value Reference Range P hosphorus 3.7 2.5-4.5 - mg/dL * JodyJanell 02/13/2024 9:47 :24 AM >See phone encounter * Procedure Codes: G 2211 Complex e/[place], [address] GLUCOSE TEST, 34301 GLYCATED HEMOGLOBIN TEST, Modifiers: QW * Follow Up: 6 Months * Images: Billing Information: * Visit Code: 47975 Office Visit, Est Pt., Level 4. * Procedure Codes: G2211 Complex e/[place]. [address] GLUCOSE TEST. 06634 GLYCATED HEMOGLOBIN TEST. Modifiers: QW * Electronic signature of Emily n Elgin , MD on 03/13/2025 at 03:55 PM EST Sign off status: Pending * Provider: Purvi Torres M.D. Date: 04/13/2023 Generated for Evan bergman/Vivian/Tricia on: 05/14/2024 03:55 PM EST History and Physical Notes * HPI (History of Present Illness) Category Sub-Category Detail Notes Category Not es Endocrinology Recent Blood Sugars Pt here to f /u on DM 2, pt states that she does not check blood sugar at home Cardiology Blood Pressure Elevated Pt here for 6 mo f/u on hypertension, states she is doing well and does not have any concerns Hyperlipidemia Pt is fasting today Examination Category Sub-Category Detail Notes Category Not es Cardiology Lungs: clear, no rales or wheezes HEENT: unremarkable Heart sounds: RRR, normal S1, S2 Extremities: no leg edema Peripheral pulses: 2 plus bilateral General Appearance: pleasant, NAD, using a cane to assist with ambulation
--- OUTSIDE RECORDS SUMMARY | 2024-08-12 04:30 | XMS_ITS ---
Author Organization [facility] Address [address] [facility] [address] [place] [id number] Care Team Providers Care Brewmaster Name Role Phone Harry Torres Primary Care Provider Allergies Allergen (clinical drug ingredient) Drug/Non Drug Allergy documented on EMR Reaction Allergy Type Onset Date Status Substance with 5-vxzuzsg-5-methylgluta ryl-coenzyme A reductase inhibitor mechanism of action (substance) Statins Myalgias Drug Allergy Active Results Component Value Reference Range Notes Glucose (In-House) Reviewed date:08/12/2024 11:03:54 AM Interpretation: Performing Lab: Notes/Report: blood glucose 144 74 - 106 mg/dL Glycohemoglobin A1c (in hous e) Reviewed date:08/12/2024 11:03:46 AM Interpretation: Performing Lab: Notes/Report: glycohemoglobin 5.5% 5 - 6.5 % P-Basic Metabolic Panel (BMP ) Reviewed date:08/13/2024 09:28:09 AM Interpretation:co2- 19, glu 112, bun 28, Cr 1.75, gfr 29 Performing Lab: Notes/Report: Test performed by [employer] [employer], test company [address] [place] [address] , [address], [place] [address] Indio Arias MD, City Auditor CLIA: [id number] Sodium 140 135-145 mmol/L Potassium 5.3 3.5-5.3 mmol/L Chloride 108 97-108 mmol/L CO2 19 22-32 mmol/L Glucose 112 65-99 mg/dL BUN 28 8-23 mg/dL Creatinine 1.75 0.50-1.00 mg/dL Calcium 9.4 8.6-10.4 mg/dL eGFR by Creatinine 29 >59 mL/min/1.73m2 P-Lipid Panel Reviewed date:08/13/2024 09:28:10 AM Interpretation:chol 222, non-hdl 170, ldl 143 Performing Lab: Notes/Report: Test performed by [employer], test company [address] [place] [address] , [facility], [place] [address] Indio Arias MD, City Auditor CLIA: [id number] Cholesterol 222 <200 mg/dL Triglycerides 134 <150 mg/dL HDL Cholesterol 52 >39 mg/dL Cholesterol / HDL Ratio 4.27 0.00-4.44 Ratio Non-HDL Cholesterol 170 <130 mg/dL LDL Cholesterol (Calculation) 143 <130 mg/dL LDL Cholesterol Levels* Less than 100 mg/dL Optimal 100 to 129 mg/dL Near Optimal/ Above Optimal 130 to 159 mg/dL Borderline High 160 to 189 mg/dL High 190 mg/dL and above Very High * Categories as recommended by the 2004 ATPIII guidelines LDL/HDL Ratio 2.8 <3.3 Ratio LDL Cholesterol Patient History Test Date: 02/12/2023 LDL Results: 156 Units: mg/dL % Change: - Test Date: 02/12/2024 LDL Results: 132 Units: mg/dL % Change: -15% Test Date: 08/12/2024 LDL Results: 143 Units: mg/dL % Change: +8% P-Vitamin D 25-Hydroxy Reviewed date:08/13/2024 09:28:10 AM Interpretation:Normal Performing Lab: Notes/Report: Test performed by [facility], [address] , [place] [address] Indio Arias MD, City Auditor CLIA: [id number] Vitamin D 25-Hydroxy 91.3 30.0-100.0 ng/mL Interpretation of Vitamin D 25 OH: < 20 ng/mL - Deficiency 20 - 29 ng/mL - Insufficiency 30 - 100 ng/mL - Sufficiency > 100 ng/mL - Super-therapeutic- toxicity may occur above this level. Clinical correlation required. REASON FOR VISIT 6 months Medications Medication SIG (Take, Route, Frequency, Duration) Notes Start Date End Date Status Carvedilol 6.25 MG 1 tablet with food O rally Twice a day; Duration: 90 days Active Omeprazole 20 MG Take 1 capsule by uth once daily; Duration: 90 days Active Losartan Potassium 100 MG 1 tab(s) orall y once a day; Duration: 90 days Active Vitamin D 50 MCG (1999 UT) 2 capsule Ora lly Once a day Active Farxiga 10 MG 1 tablet Orally Once a day; Duration: 90 days Active metFORMIN HCl ER 500 MG TAKE 2 TABLETS B Y MOUTH ONCE DAILY WITH EVENING MEAL Orally; Duration: 90 days Active hydroCHLOROthiazide 25 MG 1 tablet in morning Orally Once a day; Duration: 90 days Active Problems Problem Type SNOMED Code ICD Code Onset Dates Problem Status W/U Status Risk Notes Problem Body mass index 30.00 to 34.99 ([id number] 107) BMI 31.0-31.9,a dult (Z68.31) Active confirmed Vital Signs Weight 208.6 lbs 08/12/2024 Blood pressure systolic 142 mm Hg 08/13/19 25 Blood pressure diastolic 76 mm Hg 025 Heart Rate 58 /min 08/12/2024 Height 68.50 in 08/12/2024 BMI 31.25 kg/m2 08/12/2024 Encounters Encounter Location Date Provider Diagnosis [facility] [address] [facility] [address] [facility] [address] [place] [id number] 08/12/2024 Harry Torres Essential hypertensi on I10 ; Type 2 diabetes mellitus without complication, without long-term current use of insulin E11.9 ; Stage 3b chronic kidney disease N18.32 ; Vitamin D deficiency E55.9 and BMI 31.0-31.9,adult Z68.31 Assessments Encounter Date Diagnosis (ICD Code) Assessment Notes Treatment Notes Treatment Clinical Notes Section Notes 08/12/2024 Essential hypertension (ICD-10 - I10) 08/12/2024 Type 2 diabetes mellitus without complication, without long-term current use of insulin (ICD-10 - E11.9) 08/12/2024 Stage 3b chronic kidney disease (ICD-10 - N18.32) 08/12/2024 Vitamin D deficiency (ICD-10 - E55.9) 08/12/2024 BMI 31.0-31.9,adult (ICD-10 - Z68.31) Plan Of Treatment Medication Medication Name Sig Start Date Stop Date Notes metFORMIN HCl ER 500 MG TAKE 2 TABLETS B Y MOUTH ONCE DAILY WITH EVENING MEAL Orally; Duration: 90 days Next Appt Details Follow Up: 6 Months, Reason: Provider Name:Harry Wiseman ry, 08/16/2025 09:45:00 AM, [address] [facility] [address] [facility], [address], [place], [phone], Progress Notes * Vladimir DOMINGUEZOB:1945 ( 80 yo F)Acc No.[id number]:08/12/2024 Progress Notes Patient: Coco LEAL Provider: Purvi Torres M.D. :1945 A ge:79 Y S ex:Female Date:08/12/2024 Address:[address] [place] [address] DR RAUL MONACO, [id number] Subjective: * Chief Complaints: * 1 . 6 months. * HPI: C ardiology: 79 year old female presents with c/o Short of Breath w ith exertion. c/o BloodPressure at Home T he patient is here for a check up on Hypertension and Hyperlipidemia. Pt states she is doing good and denies any new concerns. Pt is fasting. Denies : Chest Pain. D enies : Dizziness. D enies : Palpitations. E ndocrinology: c/o Recent Blood Sugars T he pt is here for a check up on Diabetes, not checking regularly. * ROS: D ERMATOLOGY: no R dago. n o H domenic. G ASTROENTEROLOGY: no N ausea. n o V omiting. n o D iarrhea.? U ROLOGY: no D ifficulty urinating. n o B lood in urine. * Medical History: T ype 2 Diabetes, Hypertension, LT Heart Cath, Cardiomyopathy, 07/2017, Congestive Heart Failure, EF = 40%, 07/2017, Echo with 55% EF, 10/02/2007, Heart Cath, Mild Diastolic Sysfunction, EF=45%, 2003, Esophageal Reflux, Osteoarthritis, Lumbar Disc Disease. * Surgical History: C ataract Removal 1998, Donner Tooth Removal 03/2010, Donner Tooth Removal 03/21/2011, RT Knee Replacement 04/17/2011. * Hospitalization/Major Diagno stic Procedure: Caleb Lowery in [place] for knee surgery 04/17/2011, [facility] ER - Dislocated Left Shoulder 08/05/2022. * Family History: F ather: . M other: . 1 son(s) - healthy. . * Social History: C URRENT TOBACCO USE S moking Status: Patient does NOT smoke. C affeine: yes, frequency: once a day. Exercise: no. Marital Status: . Past smoking status: no, Smoking status: Does not smoke. Alcohol: No. * Medications: T aking Vitamin D 50 MCG (1999 UT) Capsule 2 capsule Orally Once a day , Taking hydroCHLOROthiazide 25 MG Tablet 1 tablet in the morning Orally Once a day , Taking Farxiga 10 MG Tablet 1 tablet Orally Once a day , Taking Carvedilol 6.25 MG Tablet 1 tablet with food Orally Twice a day , Taking metFORMIN HCl ER 500 MG Tablet Extended Release 24 Hour TAKE 2 TABLETS BY MOUTH ONCE DAILY WITH EVENING MEAL Orally , Taking Omeprazole 20 MG Capsule Delayed Release Take 1 capsule by mouth once daily , Taking Losartan Potassium 100 MG Tablet 1 tab(s) orally once a day , Discontinued traMADol HCl 50 MG Tablet 1 tablet as needed Orally Once a day , Medication List reviewed and reconciled with the patient * Allergies: S tatins: Myalgias - Side Effects. Objective: * Vitals: W t: 208.6, Temp: 97.9, BP: 142/76, HR: 58, O2 Sat: 98% on RA, Nurse: RADHA, Ht: 68.50, BMI:31.25. * Examination: C ardiology: General Appearance: p leasant, NAD, using a cane to assist with ambulation. H EENT: u nremarkable. H eart sounds: R RR, normal S1, S2. L ungs: c lear, no rales or wheezes. E xtremities: n o leg edema. P eripheral pulses:? 2 plus bilateral. Assessment: * Assessment: 1. E ssential hypertension - I10 (Primary) 2 . T ype 2 diabetes mellitus without complication, without long-term current use of insulin - E11.9 3 . S tage 3b chronic kidney disease - N18.32 4 . V itamin D deficiency - E55.9 5. B NJ 31.0-31.9,adult - Z68.31 Plan: * Treatment: Value Reference Range B UN 28 H 8-23 - mg/dL * C alcium 9.4 8.6-10.4 - mg/dL * C hloride 108 97-108 - mmol/L * C O2 19 L 22-32 - mmol/L * C reatinine 1.75 H 0.50-1.00 - mg/dL * G lucose 112 H 65-99 - mg/dL * P otassium 5.3 3.5-5.3 - mmol/L * S odium 140 135-145 - mmol/L * e GFR by Creatinine 29 L >59 - mL/min/1.73m2 * Janell Vera 08/13/2024 09:2 8:03 AM > See phone encounter ?LAB: P-Lipid Panel (Collection Date & Time - 08/12/2024 09:15 AM)?chol 222, non-hdl 170, ldl 143* Value Reference Range C holesterol / HDL Ratio 4.27 0.00-4.44 - Ratio * C holesterol 222 H <200 - mg/dL * H DL Cholesterol 52 >39 - mg/dL * L DL Cholesterol (Calculation) 143 H <130 - mg/d L * L DL/HDL Ratio 2.8 <3.3 - Ratio * N on-HDL Cholesterol 170 H <130 - mg/dL * T riglycerides 134 <150 - mg/dL * Janell Vera 08/13/2024 09:2 8:03 AM > See phone encounter ?LAB: Glucose (In-House) (Collection Date & Time - 08/12/2024)* Value Reference Range b lood glucose 144 74 - 106 mg/dL * Meryl Longoria 08/12/2024 10 :22:46 AM > Provider reviewed results while patient in office. ?LAB: Glycohemoglobin A1c (in house) (Collection Date & Time - 08/12/2024)* Value Reference Range g lycohemoglobin 5.5% 5 - 6.5 % * Meryl Longoria 08/12/2024 10 :23:05 AM > Provider reviewed results while patient in office. 2.?Stage 3b chronic kidney disease?LAB: P-Basic Metabolic Panel (BMP) (Collection Date & Time - 08/12/2024 09:15 AM)?co2- 19, glu 112, bun 28, Cr 1.75, gfr 29* Value Reference Range B UN 28 H 8-23 - mg/dL * C alcium 9.4 8.6-10.4 - mg/dL * C hloride 108 97-108 - mmol/L * C O2 19 L 22-32 - mmol/L * C reatinine 1.75 H 0.50-1.00 - mg/dL * G lucose 112 H 65-99 - mg/dL * P otassium 5.3 3.5-5.3 - mmol/L * S odium 140 135-145 - mmol/L * e GFR by Creatinine 29 L >59 - mL/min/1.73m2 * Janell Vera 08/13/2024 09:2 8:03 AM > See phone encounter 3.?Vitamin D deficiency?LAB: P-Vitamin D 25-Hydroxy (Collection Date & Time - 08/12/2024 09:15 AM)? Normal* Value Reference Range V itamin D 25-Hydroxy 91.3 30.0-100.0 - ng/mL * Janell Vera 08/13/2024 09:2 8:03 AM > See phone encounter * Procedure Codes: G 2211 Complex e/[place], [address] GLUCOSE TEST, 12539 GLYCATED HEMOGLOBIN TEST, Modifiers: QW , 3044F HG A1C LEVEL LT 7.0%, G8753 MOST RECENT SYSTOLIC BP >= 140MM HG, G8754 MOST RECENT DIASTOLIC BP < 90MM HG * Follow Up: 6 Months * Images: Billing Information: * Visit Code: 65762 Office Visit, Est Pt., Level 4. * Procedure Codes: G2211 Complex e/[place]. [address] GLUCOSE TEST. 03450 GLYCATED HEMOGLOBIN TEST. Modifiers: QW 3044F HG A1C LEVEL LT 7.0%. G8753 MOST RECENT SYSTOLIC BP >= 140MM HG. G8754 MOST RECENT DIASTOLIC BP < 90MM HG. * Electronic signature of Emily Torres MD on 03/13/2025 at 03:54 PM EST Sign off status: Pending * Provider: Purvi Torres M.D. Date: 0 08/12/2024 Generated for Evan bergman/Vivian/Ibrahimaitting on: 1 05/14/2024 03:54 PM EST History and Physical Notes * HPI (History of Present Illness) Category Sub-Category Detail Notes Category Not es Endocrinology Recent Blood Sugars The pt is he re for a check up on Diabetes, not checking regularly Cardiology Short of Breath with exertion Chest Pain Palpitations Dizziness BloodPressure at Home The patient is her e for a check up on Hypertension and Hyperlipidemia. Pt states she is doing good and denies any new concerns. Pt is fasting Examination Category Sub-Category Detail Notes Category Not es Cardiology Lungs: clear, no rales or wheezes HEENT: unremarkable Heart sounds: RRR, normal S1, S2 Extremities: no leg edema Peripheral pulses: 2 plus bilateral General Appearance: pleasant, NAD, using a cane to assist with ambulation
--- OUTSIDE RECORDS SUMMARY | 2024-09-13 06:00 | XMS_ITS ---
[facility] Organization [facility] Address [address] [facility] [address] [place] [id number] Care Team Providers Care Director Facilities Maintenance Name Role Phone Brian Harry Primary Care Provider Results Component Value Reference Range Notes P-Basic Metabolic Panel (BMP ) Reviewed date:09/14/2024 05:08:07 PM Interpretation:gluc 102, bun 26, Cr 1.3, gfr 42 Performing Lab: Notes/Report: Test performed by [facility] [address] [place] [address] , [address], [place] [address] Indio Arias MD, Roll Grinder Operator CLIA: [id number] Sodium 139 135-145 mmol/L Potassium 4.9 3.5-5.3 mmol/L Chloride 103 97-108 mmol/L CO2 25 22-32 mmol/L Glucose 102 65-99 mg/dL BUN 26 8-23 mg/dL Creatinine 1.30 0.50-1.00 mg/dL Calcium 10.0 8.6-10.4 mg/dL eGFR by Creatinine 42 >59 mL/min/1.73m2 REASON FOR VISIT blood work Medications Medication SIG (Take, Route, Frequency, Duration) Notes Start Date End Date Status metFORMIN HCl ER 500 MG TAKE 2 TABLETS B Y MOUTH ONCE DAILY WITH EVENING MEAL Orally; Duration: 90 days Active Kerendia 10 MG 1 tablet Orally Once a day; Duration: 30 days GFR 29 08/18/2024 Active Losartan Potassium 100 MG 1 tab(s) orall y once a day; Duration: 90 days Active Carvedilol 6.25 MG 1 tablet with food Orally Twice a day; Duration: 90 days Active Omeprazole 20 MG Take 1 capsule by mo ut once daily; Duration: 90 days Active hydroCHLOROthiazide 25 MG 1 tablet in e morning Orally Once a day; Duration: 90 days Active Farxiga 10 MG 1 tablet Orally Once a day; Duration: 90 days Active Vitamin D 50 MCG (1999) 2 capsule Ora lly Once a day Active Encounters Encounter Location Date Provider Diagnosis [facility] [address] [place] [phone] 09/13/2024 Harry Torres Stage 3b chronic kidney disease N18.32 Assessments Encounter Date Diagnosis (ICD Code) Assessment Notes Treatment Notes Treatment Clinical Notes Section Notes 09/13/2024 Stage 3b chronic kidney disease (ICD-10 - N18.32) Plan Of Treatment Next Appt Details Provider Name:Harry Wiseman ry, 08/16/2025 09:45:00 AM, [address], [address], [place], [phone], Progress Notes * Vladimir DOMINGUEZOB:1945 ( 80 yo F)Acc No.[id number]:09/13/2024 Patient: Coco LEAL Provider: Purvi Torres M.D. :1945 A ge:79 Y S ex:Female Date:09/13/2024 Address:[address] [place], [place] [address], [id number] Subjective: * Chief Complaints: * 1 . Blood work. * Medical History: * Medications: T osbaldog Vitamin D 50 MCG (1999) Capsule 2 capsule Orally Once a day , Taking hydroCHLOROthiazide 25 MG Tablet 1 tablet in the morning Orally Once a day , Taking Farxiga 10 MG Tablet 1 tablet Orally Once a day , Taking Carvedilol 6.25 MG Tablet 1 tablet with food Orally Twice a day , Taking Omeprazole 20 MG Capsule Delayed Release Take 1 capsule by mouth once daily , Taking Losartan Potassium 100 MG Tablet 1 tab(s) orally once a day , Taking metFORMIN HCl ER 500 MG Tablet Extended Release 24 Hour TAKE 2 TABLETS BY MOUTH ONCE DAILY WITH EVENING MEAL Orally , Taking Kerendia 10 MG Tablet 1 tablet Orally Once a day , Notes to Pharmacist: GFR 29, Medication List reviewed and reconciled with the patient Objective: * Vitals: Assessment: * Assessment: 1. S isi 3b chronic kidney disease - N18.32 Plan: * Treatment: Value Reference Range B UN 26 H 8-23 - mg/dL * C alcium 10.0 8.6-10.4 - mg/dL * C hloride 103 97-108 - mmol/L * C O2 25 22-32 - mmol/L * C reatinine 1.30 H 0.50-1.00 - mg/dL * G lucose 102 H 65-99 - mg/dL * P otassium 4.9 3.5-5.3 - mmol/L * S odium 139 135-145 - mmol/L * e GFR by Creatinine 42 L >59 - mL/min/1.73m2 * Ceci Loco 09/14/2024 05: 07:59 PM EDT > See phone encounter * Images: Billing Information: * Visit Code: * Procedure Codes: * Electronic signature of Emily Torres MD on 03/13/2025 at 03:54 PM EST Sign off status: Pending * Provider: Purvi Torres M.D. Date: 0 09/13/2024 Generated for Evan bergman/Vivian/Tricia on: 1 05/14/2024 03:54 PM EST
--- OUTSIDE RECORDS SUMMARY | 2025-02-14 04:15 | XMS_ITS ---
Author Organization [facility] Address [address] [facility] [address] [place] [id number] Care Team Providers Care Second Cutter Name Role Phone Drew Torresian Primary Care Provider Allergies Allergen (clinical drug ingredient) Drug/Non Drug Allergy documented on EMR Reaction Allergy Type Onset Date Status Substance with 7-osgtoqm-3-methylgluta ryl-coenzyme A reductase inhibitor mechanism of action (substance) Statins Myalgias Drug Allergy Active Results Component Value Reference Range Notes Glucose (In-House) Reviewed date:02/14/2025 09:50:31 PM Interpretation:118 Performing Lab: Notes/Report: 118 blood glucose 118 74 - 106 mg/dL CBC Venipuncture (in house) Reviewed date:02/14/2025 09:50:21 PM Interpretation:Normal Performing Lab: Notes/Report: Normal wbc 7.7 3.5 - 10 lymph 22.8% 15 - 50 mid 6.0% 2 - 15 gran 71.2% 35 - 80 rbc 4.63 3.5 - 5.5 hgb 13.0 11.5 - 16.5 hct 39.2 35 - 55 mcv 84.6 75 - 100 mch 28.1 25 - 35 mchc 33.3 31 - 38 platlet 352 100 - 400 Glycohemoglobin A1c (in hous e) Reviewed date:02/14/2025 09:50:40 PM Interpretation:5.5 Performing Lab: Notes/Report: 5.5 glycohemoglobin 5.5% 5 - 6.5 % P-Comprehensive Metabolic Pa andi (CMP) Reviewed date:02/15/2025 10:24:41 AM Interpretation:K 5.6, BUN 32, Creat 1.53, eGFR 34 Performing Lab: Notes/Report: Test performed by [facility] [address] [place] [address] Abner Roberto C, [place] [address] Alexandrea Hopkins MD, PhD, [facility], Remedial Project Manager CLIA: [id number] Sodium 136 135-145 mmol/L Potassium 5.6 3.5-5.3 mmol/L Chloride 107 97-108 mmol/L CO2 25 20-32 mmol/L Glucose 98 65-99 mg/dL BUN 32 8-23 mg/dL Creatinine 1.53 0.50-1.00 mg/dL Calcium 9.8 8.6-10.4 mg/dL eGFR by Creatinine 34 >59 mL/min/1.73m2 Protein 7.0 6.0-8.3 g/dL Albumin 4.2 3.5-5.3 g/dL Alkaline Phosphatase 141 41-145 IU/L ALT (SGPT) 13 <5-47 IU/L AST (SGOT) 16 <5-40 IU/L Bilirubin, Total 0.5 <0.2-1.2 mg/dL A/G Ratio 1.5 1.1-2.5 P-Lipid Panel Reviewed date:02/15/2025 10:24:41 AM Interpretation:TC 220, TC/HDL 4.15, Non-HDL 167, LDL 144, LDL/HDL 2.71 Performing Lab: Notes/Report: Test performed by [facility] [address] [place] [address] Abner Roberto C, [place] [address] Alexandrea Hopkins MD, PhD, [facility], Remedial Project Manager CLIA: [id number] Lipid Panel Footnote See Below *Based on optimal reference values. Please refer to the DOS for additional information regarding diagnostic lipid reference ranges, patient management based on the recently updated lipid guidelines ([place] [employer]/[place] [employer] Task Force on Clinical Practice Guidelines (2018), and pediatric diagnostic lipid reference values (<18 years old). Total Cholesterol 220 <200 mg/dL Triglycerides 117 <150 mg/dL HDL Cholesterol 53 >50 mg/dL Total Cholesterol / HDL Ratio* 4.15 <3.99 Rati o Non-HDL Cholesterol 167 <130 mg/dL LDL Cholesterol (Calculation) 144 <100 mg/dL LDL / HDL Ratio* 2.71 <1.99 Ratio LDL Cholesterol Patient History Test Date: 02/12/2024 LDL Results: 132 Units: mg/dL % Change: -15% Test Date: 08/12/2024 LDL Results: 143 Units: mg/dL % Change: +8% Test Date: 02/14/2025 LDL Results: 144 Units: mg/dL % Change: +0% P-Phosphorus Reviewed date:02/15/2025 10:24:41 AM Interpretation:Normal Performing Lab: Notes/Report: Test performed by [facility] [address] [facility] , [address], [place] [address] Alexandrea Hopkins MD, PhD, FCAP, Remedial Project Manager CLIA: [id number] Phosphorus 3.7 2.5-4.5 mg/dL P-TSH reflex to FT4 Reviewed date:02/15/2025 10:24:41 AM Interpretation:Normal Performing Lab: Notes/Report: Test performed by [facility] [address] [place] [address] , [place] [address] Alexandrea Hopkins MD, PhD, AP, Remedial Project Manager CLIA: [id number] TSH reflex to FT4 3.04 0.43-5.25 mU/L P-Microalbumin/Creatinine, R andom Urine Sample Reviewed date:02/15/2025 10:24:41 AM Interpretation:Normal Performing Lab: Notes/Report: Test performed by [facility] [address] [place] [address] , [facility] [place] [address] Alexandrea Hopkins MD, PhD, [facility], Remedial Project Manager CLIA: [id number] Albumin/Creatinine Ratio, Urine 5 0-30 ug/m g Microalbumin, Urine, Random 0.4 Creatinine, Urine 77.8 P-Vitamin D 25-Hydroxy Reviewed date:02/15/2025 10:24:41 AM Interpretation:Normal Performing Lab: Notes/Report: Test performed by [facility] [address] [place] [address] , [address], [place] [address] Alexandrea Hopkins MD, PhD, [facility], Remedial Project Manager CLIA: [id number] Vitamin D 25-Hydroxy 80.1 30.0-100.0 ng/mL Interpretation of Vitamin D 25 OH: < 20 ng/mL - Deficiency 20 - 29 ng/mL - Insufficiency 30 - 100 ng/mL - Sufficiency > 100 ng/mL - Super-therapeutic- toxicity may occur above this level. Clinical correlation required. REASON FOR VISIT 6 months Medications Medication SIG (Take, Route, Frequency, Duration) Notes Start Date End Date Status Carvedilol 6.25 MG Take 1 tablet by twice daily with food; Duration: 90 Active Farxiga 10 MG 1 tablet Orally Once a day; Duration: 90 days Active Omeprazole 20 MG Take 1 capsule by mo once daily for 90 days; Duration: 90 Active metFORMIN HCl ER 500 MG 1 tablet with ev ening meal Orally Once a day; Duration: 90 days Active Losartan Potassium 100 MG Take 1 tablet by mouth once daily for 90 days; Duration: 90 Active hydroCHLOROthiazide 25 MG 1 tablet in morning Orally Once a day; Duration: 90 days Active Kerendia 20 MG 1 tablet Orally Once a day; Duration: 90 days 09/16/2024 Active Vitamin D 50 MCG (1999) 2 capsule Ora lly Once a day Active Problems Problem Type SNOMED Code ICD Code Onset Dates Problem Status W/U Status Risk Notes Problem 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) Active confirmed Problem Hypertensive heart AND chronic kidney disease with congestive heart failure ([id number]) Hypertensive heart and chronic kidney disease with heart failure and stage 1 through stage 4 chronic kidney disease, or unspecified chronic kidney disease (I13.0) Active confirmed Vital Signs Weight 210.6 lbs 02/14/2025 Blood pressure systolic 140 mm Hg 02/15/20 25 Blood pressure diastolic 82 mm Hg 025 Heart Rate 75 /min 02/14/2025 Height 68.50 in 02/14/2025 BMI 31.55 kg/m2 02/14/2025 Encounters Encounter Location Date Provider [facility] [address] [id number] 02/14/2025 Harry Torres Type 2 diabetes dandy itus without complication, without long-term current use of insulin E11.9 ; Essential hypertension I10 ; Hyperlipidemia, unspecified hyperlipidemia E78.5 ; Gastroesophageal reflux disease, esophagitis presence not specified K21.9 ; Vitamin D deficiency E55.9 ; Stage 3b chronic kidney disease N18.32 ; Non morbid obesity E66.9 ; Cardiomyopathy, unspecified type I42.9 ; 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.22 ; Hypertensive heart and chronic kidney disease with heart failure and stage 1 through stage 4 chronic kidney disease, or unspecified chronic kidney disease I13.0 and BMI 31.0-31.9,adult Z68.31 Assessments Encounter Date Diagnosis (ICD Code) Assessment Notes Treatment Notes Treatment Clinical Notes Section Notes 02/14/2025 Type 2 diabetes mellitus without complication, without long-term current use of insulin (ICD-10 - E11.9) 02/14/2025 Essential hypertension (ICD-10 - I10) 02/14/2025 Hyperlipidemia, unspecified hyperlipidemia (ICD-10 - E78.5) 02/14/2025 Gastroesophageal reflux disease, esophagitis presence not specified (ICD-10 - K21.9) 02/14/2025 Vitamin D deficiency (ICD-10 - E55.9) 02/14/2025 Stage 3b chronic kidney disease (ICD-10 - N18.32) 02/14/2025 Non morbid obesity (ICD-10 - E66.9) 02/14/2025 Cardiomyopathy, unspecified type (ICD-10 - I42.9) 02/14/2025 Chronic kidney disease due to diabetes mellitus (ICD-10 - E11.22) 02/14/2025 Hypertensive heart and chronic kidney disease with heart failure and stage 1 through stage 4 chronic kidney disease, or unspecified chronic kidney disease (ICD-10 - I13.0) 02/14/2025 BMI 31.0-31.9,adult (ICD-10 - Z68.31) Plan Of Treatment Next Appt Details Follow Up: 6 Months, Reason: Provider Name:Harry Wiseman ry, 08/16/2025 09:45:00 AM, [address] [facility], [address], [place], [place], [id number], Progress Notes * Vladimir MEJIAOB:1945 ( 80 yo F)Acc No.[id number]:02/14/2025 Progress Notes Patient: Coco LEAL Provider: Purvi Torres M.D. :1945 A ge:79 Y S ex:Female Date:02/14/2025 Address:[address] [place] [address] [place], [id number] Subjective: * Chief Complaints: * 1 . 6 months. * HPI: C ardiology: 79 year old female presents with c/o Blood Pressure Elevated?Pt here for 6 mo checkup on hypertension. Pt states she is doing well and does not have any concerns at this time. c/o Hyperlipidemia P t is fasting today. E ndocrinology: c/o Recent Blood Sugars P t here for checkup on DM 2, pt states that she does not check blood sugar at home. * Medical History: T ype 2 Diabetes, Hypertension, LT Heart Cath, Cardiomyopathy, 07/2017, Congestive Heart Failure, EF = 40%, 07/2017, Echo with 55% EF, 10/02/2007, Heart Cath, Mild Diastolic Sysfunction, EF=45%, 2004, Esophageal Reflux, Osteoarthritis, Lumbar Disc Disease. * Surgical History: C ataract Removal 1998, Chamberlain Tooth Removal 03/2010, Chamberlain Tooth Removal 03/21/2011, RT Knee Replacement 04/17/2011. * Hospitalization/Major Diagno stic Procedure: Caleb Lowery in [place] for knee surgery 04/17/2011, [facility] ER - Dislocated Left Shoulder 08/05/2022. * Family History: F ather: . M other: . 1 son(s) - healthy. . * Social History: C URRENT TOBACCO USE: No S moking Status: Patient does NOT smoke. C affeine: yes, frequency: once a day. Exercise: no. Marital Status: . Past smoking status: no, Smoking status: Does not smoke. Alcohol: No. * Medications: T aking Vitamin D 50 MCG (2000 UT) Capsule 2 capsule Orally Once a day , Taking Kerendia 20 MG Tablet 1 tablet Orally Once a day , Taking hydroCHLOROthiazide 25 MG Tablet 1 tablet in the morning Orally Once a day , Taking Farxiga 10 MG Tablet 1 tablet Orally Once a day , Taking Carvedilol 6.25 MG Tablet Take 1 tablet by mouth twice daily with food , Taking metFORMIN HCl ER 500 MG Tablet Extended Release 24 Hour 1 tablet with evening meal Orally Once a day , Taking Omeprazole 20 MG Capsule Delayed Release Take 1 capsule by mouth once daily for 90 days , Taking Losartan Potassium 100 MG Tablet Take 1 tablet by mouth once daily for 90 days , Medication List reviewed and reconciled with the patient * Allergies: S tatins: Myalgias - Side Effects. Objective: * Vitals: W t: 210.6, Temp: 98.1, BP: 140/82, HR: 75, Nurse: karl, Ht: 68.50, BMI:31.55. * Examination: C ardiology: General Appearance: p [...] yperlipidemia, unspecified hyperlipidemia - E78.5 4 . G astroesophageal reflux disease, esophagitis presence not specified - K21.9 5 . V itamin D deficiency - E55.9? 6. S tage 3b chronic kidney disease - N18.32 7 . N on morbid obesity - E66.9 8 . C ardiomyopathy, unspecified type - I42.9 9 . C hronic kidney disease due to diabetes mellitus - E11.22 1 0. H ypertensive heart and chronic kidney disease with heart failure and stage 1 through stage 4 chronic kidney disease, or unspecified chronic kidney disease - I13.0 1 1. B RI 31.0-31.9,adult - Z68.31 Plan: * Treatment: Value Reference Range A /G Ratio 1.5 1.1-2.5 - * A lbumin 4.2 3.5-5.3 - g/dL * A lkaline Phosphatase 141 41-145 - IU/L * A LT (SGPT) 13 <5-47 - IU/L * A ST (SGOT) 16 <5-40 - IU/L * B ilirubin, Total 0.5 <0.2-1.2 - mg/dL * B UN 32 H 8-23 - mg/dL * C alcium 9.8 8.6-10.4 - mg/dL * C hloride 107 97-108 - mmol/L * C O2 25 20-32 - mmol/L * C reatinine 1.53 H 0.50-1.00 - mg/dL * G lucose 98 65-99 - mg/dL * P otassium 5.6 H 3.5-5.3 - mmol/L * S odium 136 135-145 - mmol/L * P rotein 7.0 6.0-8.3 - g/dL * e GFR by Creatinine 34 L >59 - mL/min/1.73m2 * Ceci Loco 02/15/2025 10 :24:34 AM EST > See phone encounter ?LAB: P-Microalbumin/Creatinine, Random Urine Sample (Collection Date & Time - 02/14/2025 09:17 AM)?Normal* Value Reference Range A lbumin/Creatinine Ratio, Urine 5 0-30 - ug /mg * C reatinine, Urine 77.8 - mg/dL * M icroalbumin, Urine, Random 0.4 - mg/dL * Ceci Loco 02/15/2025 10 :24:34 AM EST > See phone encounter ?LAB: Glucose (In-House) (Collection Date & Time - 02/14/2025)?118* Value Reference Range b lood glucose 118 74 - 106 mg/dL * Stu Millerira 02/14/2025 12:07 :07 PM EST >Harry Torres 02/14/2025 09:50:27 PM EST > ?LAB: Glycohemoglobin A1c (in house) (Collection Date & Time - 02/14/2025)? 5.5* Value Reference Range g lycohemoglobin 5.5% 5 - 6.5 % * Stu Millerira 02/14/2025 12:09 :15 PM EST >ClimaxHarry T 02/14/2025 09:50:36 PM EST > 2.?Essential hypertension?LAB: P-Comprehensive Metabolic Panel (CMP) (Collection Date & Time - 02/14/2025 09:17 AM)?K 5.6, BUN 32, Creat 1.53, eGFR 34* Value Reference Range A /G Ratio 1.5 1.1-2.5 - * A lbumin 4.2 3.5-5.3 - g/dL * A lkaline Phosphatase 141 41-145 - IU/L * A LT (SGPT) 13 <5-47 - IU/L * A ST (SGOT) 16 <5-40 - IU/L * B ilirubin, Total 0.5 <0.2-1.2 - mg/dL * B UN 32 H 8-23 - mg/dL * C alcium 9.8 8.6-10.4 - mg/dL * C hloride 107 97-108 - mmol/L * C O2 25 20-32 - mmol/L * C reatinine 1.53 H 0.50-1.00 - mg/dL * G lucose 98 65-99 - mg/dL * P otassium 5.6 H 3.5-5.3 - mmol/L * S odium 136 135-145 - mmol/L * P rotein 7.0 6.0-8.3 - g/dL * e GFR by Creatinine 34 L >59 - mL/min/1.73m2 * Ceci Loco 02/15/2025 10 :24:34 AM EST > See phone encounter 3.?Hyperlipidemia, unspecified hyperlipidemia?LAB: P-Comprehensive Metabolic Panel (CMP) (Collection Date & Time - 02/14/2025 09:17 AM)?K 5.6, BUN 32, Creat 1.53, eGFR 34* Value Reference Range A /G Ratio 1.5 1.1-2.5 - * A lbumin 4.2 3.5-5.3 - g/dL * A lkaline Phosphatase 141 41-145 - IU/L * A LT (SGPT) 13 <5-47 - IU/L * A ST (SGOT) 16 <5-40 - IU/L * B ilirubin, Total 0.5 <0.2-1.2 - mg/dL * B UN 32 H 8-23 - mg/dL * C alcium 9.8 8.6-10.4 - mg/dL * C hloride 107 97-108 - mmol/L * C O2 25 20-32 - mmol/L * C reatinine 1.53 H 0.50-1.00 - mg/dL * G lucose 98 65-99 - mg/dL * P otassium 5.6 H 3.5-5.3 - mmol/L * S odium 136 135-145 - mmol/L * P rotein 7.0 6.0-8.3 - g/dL * e GFR by Creatinine 34 L >59 - mL/min/1.73m2 * Ceci Loco 02/15/2025 10 :24:34 AM EST > See phone encounter ?LAB: P-Lipid Panel (Collection Date & Time - 02/14/2025 09:17 AM)?TC 220, TC/HDL 4.15, Non-HDL 167, LDL 144, LDL/HDL 2.71* Value Reference Range C holesterol / HDL Ratio 4.15 H <3.99 - Ratio * C holesterol 220 H <200 - mg/dL * H DL Cholesterol 53 >50 - mg/dL * L DL Cholesterol (Calculation) 144 H <100 - mg/d L * L DL/HDL Ratio 2.71 H <1.99 - Ratio * N on-HDL Cholesterol 167 H <130 - mg/dL * T riglycerides 117 <150 - mg/dL * L ipid Panel Footnote See Below - * Ceci Loco 02/15/2025 10 :24:34 AM EST > See phone encounter ?LAB: P-TSH reflex to FT4 (Collection Date & Time - 02/14/2025 09:17 AM)? Normal* Value Reference Range T SH reflex to FT4 3.04 0.43-5.25 - mU/L * Ceci Loco 02/15/2025 10 :24:34 AM EST > See phone encounter 4.?Vitamin D deficiency?LAB: P-Vitamin D 25-Hydroxy (Collection Date & Time - 02/14/2025 09:17 AM)? Normal* Value Reference Range V itamin D 25-Hydroxy 80.1 30.0-100.0 - ng/mL * Ceci Loco 02/15/2025 10 :24:34 AM EST > See phone encounter 5.?Stage 3b chronic kidney disease?LAB: P-Phosphorus (Collection Date & Time - 02/14/2025 09:17 AM)?Normal* Value Reference Range P hosphorus 3.7 2.5-4.5 - mg/dL * Ceci Loco 02/15/2025 10 :24:34 AM EST > See phone encounter ?LAB: CBC Venipuncture (in house) (Collection Date & Time - 02/14/2025)? Normal* Value Reference Range w bc 7.7 3.5 - 10 * l ymph 22.8% 15 - 50 * m id 6.0% 2 - 15 * g ran 71.2% 35 - 80 * r bc 4.63 3.5 - 5.5 * h gb 13.0 11.5 - 16.5 * h ct 39.2 35 - 55 * m cv 84.6 75 - 100 * m ch 28.1 25 - 35 * m chc 33.3 31 - 38 * p latlet 352 100 - 400 * Stephie Miller 02/14/2025 12:08 :55 PM EST >ClimaxHarry martinez Kamilla 02/14/2025 09:50:16 PM EST > * Procedure Codes: G 2211 Complex [place], [address] GLUCOSE TEST, 04702 GLYCATED HEMOGLOBIN TEST, Modifiers: QW , 77227 CBC WITH AUTO DIFF, 3044F HG A1C LEVEL LT 7.0%, 1036F TOBACCO NON-USER, G8950 PREHTN/HTN BP DOC INDCD F/U DOC, G8753 MOST RECENT SYSTOLIC BP >= 140MM HG, G8754 MOST RECENT DIASTOLIC BP < 90MM HG, 3077F SYST BP = 140 MM HG6 IT, 3079F DIAST BP 80-89 MM HG * Follow Up: 6 Months * Images: Billing Information: * Visit Code: 51843 Office Visit, Est Pt., Level 4. * Procedure Codes: G2211 Complex e/[place]. [address] GLUCOSE TEST. 10557 GLYCATED HEMOGLOBIN TEST. Modifiers: QW 36652 CBC WITH AUTO DIFF. 3044F HG A1C LEVEL LT 7.0%. 1036F TOBACCO NON-USER. G8950 PREHTN/HTN BP DOC INDCD F/U DOC. G8753 MOST RECENT SYSTOLIC BP >= 140MM HG. G8754 MOST RECENT DIASTOLIC BP < 90MM HG. 3077F SYST BP = 140 MM HG6 IT. 3079F DIAST BP 80-89 MM HG. * Electronic signature of Emily Trores MD on 03/13/2025 at 03:54 PM EST Sign off status: Pending * Provider: Purvi Torres M.D. Date: 04/16/2024 Generated for Evan bergman/Vivian/Tricia on: 05/14/2024 03:54 PM EST History and Physical Notes * HPI (History of Present Illness) Category Sub-Category Detail Notes Category Not es Endocrinology Recent Blood Sugars Pt here for checkup on DM 2, pt states that she does not check blood sugar at home Cardiology Blood Pressure Elevated Pt here for 6 mo checkup on hypertension. Pt states she is doing well and does not have any concerns at this time Hyperlipidemia Pt is fasting today Examination Category Sub-Category Detail Notes Category Not es Cardiology Lungs: clear, no rales or wheezes HEENT: unremarkable Heart sounds: RRR, normal S1, S2 Extremities: no leg edema Peripheral pulses: 2 plus bilateral General Appearance: pleasant, NAD, using a cane to assist with ambulation
[2025-03-13 15:54] VITALS: BP 200/83; PULSE 76; O2SAT 98
--- NOTE | 2025-03-13 15:55 | ED_ITS ---
Discharge Plan Disposition Patient Disposition: Home, Self-Care Condition: Good Prescriptions Prescriptions: No Action multivitamin tablet 1 tab PO DAILY omeprazole 20 mg capsule,delayed release(DR/EC) 20 mg PO DAILY carvedilol [Coreg] 6.25 mg tablet 6.25 mg PO BID metformin 500 mg tablet 500 mg PO BID tramadol 50 mg tablet 50 mg PO Q8H PRN (Reason: pain) Qty: 45 0RF hydrochlorothiazide 25 mg tablet 25 mg PO BID Patient Comments: TAKE 1 TABLET BY MOUTH ONCE DAILY Farxiga 10 mg tablet 10 mg PO DAILY Patient Comments: TAKE 1 TABLET BY MOUTH ONCE DAILY Referrals Follow up/Referrals: Harry Torres MD [Primary Care Provider, Medical] - See instructions Activity Restrictions/Add. Instructions Additional Instructions/Restrictions: Please utilize your erythromycin ophthalmic ointment 4 times daily for 5 days as described below. Please use gentamicin ophthalmic drops 2 drops in the eye 6 times daily for 5 days. Please follow-up with your manager of pmo/geographic area intelligence officer/eye doctor in the upcoming days/weeks. Please return to the emergency department with any worsening signs or symptoms. [facility] Guide * Wash Hands Thoroughly:?Use soap and water to clean your hands completely.? * Prepare Ointment:?Warm the tube in your hands to help the ointment flow.? * Position Yourself:?Tilt your head back and look up at the ceiling.? * Create a Pouch:?Gently pull down your lower eyelid with one finger.? * Apply Ointment:?Squeeze a thin strip (around 1/4 inch) into the pocket, keeping the tube tip away from your eye to prevent contamination.? * Close Eye:?Release your eyelid and gently close your eye for 1 to 2 minutes to spread the medicine.? * Clean Up:?Wipe away any excess ointment from your eyelids with a clean tissue.? * Wash Hands Again:?Clean your hands after finishing.? Important Tips * Vision Blurring:?Expect blurry vision, so apply ointment before bed or when you don't need to see clearly.? * Avoid Contamination:?Never let the tube tip touch your eye or fingers.? * For Children:?Rest your wrist on their forehead for stability and aim the ointment away from their nose to direct it outward.? Clinical Impressions Clinical Impression: Corneal abrasion of left eye due to contact lens Instructions Patient Instructions: DI for Corneal Abrasion Print Language Print Language: Luxembourgish Discharge ED Provider: Rosmery Finn General Adult HPI General Chief complaint: Eye Problems Stated complaint: contact lost in left eye Time Seen by Provider: 03/13/25 15:52 Mode of Arrival: Ambulatory Source of Information: Patient, Spouse and Significant Other Limitations: No Limitations History of Present Illness HPI narrative: 80-year-old female presents to the emergency department with a foreign body sensation in her left eye, concern for contact stuck in left eye , patient states that she wears contacts daily, believes she has a foreign body sensation/contact stuck in her left eye, endorses irritation, and blurry vision, denies any other acute symptomatology, denies fever chills chest pain shortness of breath double vision, denies any overt eye pain, denies any abdominal pain nausea vomiting constipation diarrhea no urinary symptomatology, other past medical history is consistent with T2DM, hypertension, pulmonary hypertension, CHF, LBBB, GERD. Initial triage vitals notable for hypertension, otherwise unremarkable, could be in the setting of eye irritation. Please note that above description of symptoms, in this electronic medical record under categorization of recalled from ER triage doctor by RN are reflective of an initial nursing assessment, however, is not reflective of my full history and physical exam that was personally taken and clarified. C onsequentially, this preceding description of symptoms, which may include the patient's categorized chief complaint in the EMR, do not reflect my personal clinical impression, and the ultimate description of history of present illness and patient stated complaints should be deferred to this section of the note. Unless stated otherwise or congruent with this section of the note, additional signs, symptoms, or incongruence should be interpreted as inaccurate with my clinical impression. Onset (ago): hour(s) Related Data Home Medications ?Medication ?Instructions ?Recorded ?Confirmed carvedilol 6.25 mg tablet (Coreg) 6.25 mg PO BID High blood pressure 08/19/17 01/07/23 metformin 500 mg tablet 500 mg PO BID Diabetes 08/1901/07/23 multivitamin 1 tab PO DAILY Supplement 01/07/23 omeprazole 20 mg capsule,delayed 20 mg PO DAILY GERD 0 08/19/17 01/07/23 release dapagliflozin propanediol 10 mg 10 mg PO DAILY kidneys 08/05/22 01/07/23 tablet (Farxiga) hydrochlorothiazide 25 mg tablet 25 mg PO BID High blo od pressure 08/05/22 01/07/23 Previous Rx's ?Medication ?Instructions ?Recorded tramadol 50 mg tablet 50 mg PO Q8H PRN pain #45 ta bs 10/29/22 Allergies Allergy/AdvReac Type Severity Reaction Status Date / Time DON Inhibitors Allergy Mild Unknown Verified 01/07/23 09:08 allergy reaction NSAIDS (Non-Steroidal Allergy Mild Unknown Verified 01/07/23 09:08 Anti-Inflamma allergy reaction Ymyqevp-GWK-ZuG Reductase Allergy Mild Unknown Verified 01/07/23 09:08 Inhibitor (Hvpyuyb-Gpt-Grl allergy Reductase Inhibitor) reaction [facility] Disclaimer: The information contained in this section may have been updated after the patient was seen, as this information can be updated by other users. Medical History Cardiomyopathy LBBB (left bundle branch block) Social History Smoking Status: Never smoker second hand exposure: No alcohol intake: never substance use type: denies use current occupational status: retired Travel in the last 8 weeks?: None household members: spouse housing: house current occupational exposures/hazards: No caffeine: Yes Have you lived/traveled outside [place] in past 30 days?: No Contact w/someone who lives/traveled outside [place] past 30 days?: No Exposure to someone with infectious disease in past 14 days?: No Do you have a fever (greater than 100.4 F or 38 C)?: No Have you tested positive for COVID-19?: No Exposed to someone with COVID-19 in past 14 days?: No Do you have a sore throat?: No Do you have a cough?: No Do you have any weakness?: No Do you have any diarrhea?: No Are you experiencing any unusual bleeding?: No Do you have any muscle aches/pain?: No Do you have any abdominal pain?: No Are you experiencing loss of taste or smell?: No Other Medical History Have you received the Flu Vaccine for this season: No Have you received the Pneumonia Vaccine: Yes ROS Obtained: Yes All systems reviewed & no additional complaints except as documented Physical Exam General General appearance: alert and in no apparent distress Head Head exam: atraumatic and normocephalic Eye Eye exam: Present PERRL, EOMI, conjunctival injection and other (Mild conjunctival injection, no obvious ocular foreign body is noted per initial exam); Absent periorbital swelling or periorbital tenderness ENT ENT exam: Present mucous membranes moist Neck Neck exam: Present normal inspection Chest Chest inspection: Present normal inspection and symmetric chest wall rise Respiratory Respiratory exam: Present normal lung sounds bilaterally; Absent respiratory distress Cardiovascular Cardiovascular exam: Present regular rate and normal rhythm Abdominal Exam Abdominal exam: Present soft; Absent tenderness Extremities Exam Extremities exam: Present normal inspection Neurological Exam Neurological exam: Present alert and oriented X3 Psychiatric Psychiatric exam: Present normal affect Skin Skin exam: Present warm and dry Medical Decision Making Medical Records Medical records reviewed: Yes I reviewed the patient's medical records. Screening: Per USPSTF and CDC recommendations, given the prevalence of disease in our region, it is our hospital?s policy to screen for HIV and viral Hepatitis for all patients aged 18 and over and those with ongoing risk factors. [place] Inquiry Pt receiving controlled substance: No [place] was queried for this patient: No Vital Signs: 03/13/25 15:54 03/13/25 15:57 Temperature 97.8 F Temperature Source Oral Pulse Rate 76 Pulse Rate [Right] 86 Respiratory Rate 18 Blood Pressure 200/83 H Blood Pressure [Right Arm] 200/89 H Blood Pressure Mean [Right Arm] 126 Blood Pressure Source [Right Arm] Automatic Cuff Blood Pressure Position [Right Arm] Sitting 02 Sat by Pulse Oximetry 98 99 Oxygen Delivery Method Room Air Orders (Tests/Meds): ED MEDICATIONS Generic Name Dose Route Start Last Admin Trade Name Freq PRN Reason Stop Dose Admin Erythromycin 0.5 gm 03/13/25 16:29 Erythromycin Base 1 Gm Oint...G. OP 03/13/25 16:30 ONCE ONE Gentamicin Sulfate 50 ml 03/13/25 16:29 Gentamicin 0.3% Opth Natividad 5ml OP 03/13/25 16:30 ONCE ONE Discontinued Medications Generic Name Dose Route Start Last Admin Trade Name Freq PRN Reason Stop Dose Admin Fluorescein Sodium 1 mg 03/13/25 16:11 03/13/25 16:15 Fluorescein Sodium 1mg Strip OP 03/13/25 16:12 1 mg ONCE ONE Administration Tetracaine HCl 1 ml 03/13/25 16:11 03/13/25 16:14 Tetracaine 0.5% Opth Natividad 15ml OP 03/13/25 16:12 1 ml ONCE ONE Administration Medical Decision Narrative: 80-year-old female presents emergency department with a left eye foreign body sensation/irritation differential diagnose include but not limited to corneal abrasion, ocular foreign body, corneal ulcer, keratitis among others. I discussed this patient's case with the attending physician she saw and examined the patient as well. Utilizing 1 fluorescein dye strip as well as 0.05 ophthalmic tetracaine solution, with Desai lamp I did not appreciate any ocular foreign body/residual contact is noted, everted the eyelids superior and inferiorly, no obvious ocular foreign body, there is a small area of corneal dye uptake, consistent with most likely corneal abrasion around 9 AM on the patient's surface of the eye, will treat this prophylactically. Will treat patient with Erythromycin ointment 4 times daily for 5 days, as well as gentamicin 0.3% solution 2 drops every 6 for 5 days. Patient was given strict ED return precautions. Patient and family voiced understanding and agreement with the current treatment plan/discharge plan will need to follow-up with manager of pmo/geographic area intelligence officer in the upcoming days/weeks. Procedures Eye Exam/FB Removal Location: eye (L) Topical anesthetic used: tetracaine Fluorescein Stick(s) used: Yes Time Out performed: No Procedure performed under: direct visualization with magnification Evidence of corneal penetration: Yes Technique: cotton tip swab Post-procedure medication: ophthalmic antibiotic and topical anesthetic Eye irrigated w/saline (#ccs): 20 Patient tolerated procedure: well Critical Care Critical Care Time Critical Care Time: No
--- OUTSIDE RECORDS SUMMARY | 2025-03-13 15:55 | XMS_ITS | Patient Health Record ---
[facility] Address [address] [facility] [address] [place] [id number] Care Team Providers Care Appliance Installer Name Role Phone Drew Torresian Primary Care Provider Allergies Allergen (clinical drug ingredient) Drug/Non Drug Allergy documented on EMR Reaction Allergy Type Onset Date Status Substance with 0-czrlpcr-0-methylgluta ryl-coenzyme A reductase inhibitor mechanism of action (substance) Statins Myalgias Drug Allergy Active Results Component Value Reference Range Notes P-Basic Metabolic Panel (BMP ) Reviewed date:09/14/2024 05:08:07 PM Interpretation:gluc 102, bun 26, Cr 1.3, gfr 42 Performing Lab: Notes/Report: Test performed by [facility] [address] [place] [address] , [address], [place] [address] Indio Arias MD, Tarring Machine Operator CLIA: [id number] Sodium 139 135-145 mmol/L Potassium 4.9 3.5-5.3 mmol/L Chloride 103 97-108 mmol/L CO2 25 22-32 mmol/L Glucose 102 65-99 mg/dL BUN 26 8-23 mg/dL Creatinine 1.30 0.50-1.00 mg/dL Calcium 10.0 8.6-10.4 mg/dL eGFR by Creatinine 42 >59 mL/min/1.73m2 Glucose (In-House) Reviewed date:02/14/2025 09:50:31 PM Interpretation:118 [...] 34 Performing Lab: Notes/Report: Test performed by [facility] [address] [place] [address] , [address], [place] [address] Alexandrea Hopkins MD, PhD, [facility], Tarring Machine Operator CLIA: [id number] Sodium 136 135-145 mmol/L Potassium 5.6 3.5-5.3 [...] 2.71 Performing Lab: Notes/Report: Test performed by [facility] [address] [place] [address] Abner Roberto C, [place] [address] Alexandrea Hopkins MD, PhD, [facility], Tarring Machine Operator [facility]: [id number] Lipid Panel Footnote See Below *Based on optimal reference values. Please refer to the DOS for additional information regarding diagnostic lipid reference ranges, patient management based on the recently updated lipid guidelines ([place] [employer]/[place] [employer] Task Force on Clinical Practice [...] Interpretation:Normal Performing Lab: Notes/Report: Test performed by [facility] [address] [place] [address] , [address], [place] [address] Alexandrea Hopkins MD, PhD, AP, Tarring Machine Operator CLIA: [id number] Phosphorus 3.7 2.5-4.5 mg/dL P-TSH reflex to FT4 Reviewed date:02/15/2025 10:24:41 AM Interpretation:Normal Performing Lab: Notes/Report: Test performed by [facility] [address] [place] [address] , [address], [place] [address] Alexandrea Hopkins MD, PhD, [facility], Tarring Machine Operator CLIA: [id number] TSH reflex to FT4 3.04 0.43-5.25 mU/L P-Microalbumin/Creatinine, R andom Urine Sample Reviewed date:02/15/2025 10:24:41 AM Interpretation:Normal Performing Lab: Notes/Report: Test performed by [facility] [address] [place] [address] , [address], [place] [address] Alexandrea Hopkins MD, PhD, AP, Tarring Machine Operator CLIA: [id number] Albumin/Creatinine Ratio, Urine 5 0-30 ug/m g Microalbumin, Urine, Random 0.4 Creatinine, Urine 77.8 P-Vitamin D 25-Hydroxy Reviewed date:02/15/2025 10:24:41 AM Interpretation:Normal Performing Lab: Notes/Report: Test performed by [facility] [address] [place] [address] , [address], [place] [address] Alexandrea Hopkins MD, PhD, FCAP, Tarring Machine Operator CLIA: [id number] Vitamin D 25-Hydroxy 80.1 30.0-100.0 ng/mL Interpretation of Vitamin D 25 [place]: < 20 ng/mL - Deficiency 20 - 29 ng/mL - Insufficiency 30 - 100 ng/mL - Sufficiency > 100 ng/mL - Super-therapeutic- toxicity may occur above this level. Clinical correlation required. Glucose (In-House) Reviewed date:08/12/2024 11:03:54 AM Interpretation: Performing Lab: Notes/Report: blood glucose 144 74 - 106 mg/dL Glycohemoglobin A1c (in hous e) Reviewed date:08/12/2024 11:03:46 AM Interpretation: Performing Lab: Notes/Report: glycohemoglobin 5.5% 5 - 6.5 % P-Basic Metabolic Panel (BMP ) Reviewed date:08/13/2024 09:28:09 AM Interpretation:co2- 19, glu 112, bun 28, Cr 1.75, gfr 29 Performing Lab: Notes/Report: Test performed by [facility] [address] [place] [address] , [facility], [place] [address] Indio Arias MD, Tarring Machine Operator CLIA: [id number] Sodium 140 135-145 mmol/L Potassium 5.3 3.5-5.3 mmol/L Chloride 108 97-108 mmol/L CO2 19 22-32 mmol/L Glucose 112 65-99 mg/dL BUN 28 8-23 mg/dL Creatinine 1.75 0.50-1.00 mg/dL Calcium 9.4 8.6-10.4 mg/dL eGFR by Creatinine 29 >59 mL/min/1.73m2 P-Lipid Panel Reviewed date:08/13/2024 09:28:10 AM Interpretation:chol 222, non-hdl 170, ldl 143 Performing Lab: Notes/Report: Test performed by [facility] [address] [place] [address] , [address], [place] [address] Indio Arias MD, Tarring Machine Operator CLIA: [id number] Cholesterol 222 <200 mg/dL Triglycerides 134 <150 [...] Interpretation:Normal Performing Lab: Notes/Report: Test performed by [facility] [address] [place] [address] , [facility], [place] [address] Indio Arias MD, Tarring Machine Operator CLIA: [id number] Vitamin D 25-Hydroxy 91.3 30.0-100.0 ng/mL Interpretation of Vitamin D 25 OH: < 20 ng/mL - Deficiency 20 - 29 ng/mL - Insufficiency 30 - 100 ng/mL - Sufficiency > 100 ng/mL - Super-therapeutic- toxicity may occur above this level. Clinical correlation required. Medications Medication SIG (Take, Route, Frequency, Duration) Notes Start Date End Date Status hydroCHLOROthiazide 25 MG 1 tablet in th e morning Orally Once a day; Duration: 90 days Active Carvedilol 6.25 MG Take 1 tablet by miguel th twice daily with food; Duration: 90 Active Farxiga 10 MG 1 tablet Orally Once a day; Duration: 90 days Active Vitamin D 50 MCG (1999 UT) 2 capsule Ora lly Once a day Active Kerendia 20 MG 1 tablet Orally Once a day; Duration: 90 days Active Omeprazole 20 MG Take 1 capsule by mo uth once daily for 90 days; Duration: 90 Active metFORMIN HCl ER 500 MG 1 tablet with ev ening meal Orally Once a day; Duration: 90 days Active Losartan Potassium 100 MG Take 1 tablet by mouth once daily for 90 days; Duration: 90 Active Immunizations Vaccine Route Administration Date Status Comme nts COVID 19 Pfizer Unknown 04/21/2020 Administered COVID 19 Pfizer Unknown 05/16/2020 Administered COVID 19 Pfizer Unknown 12/22/2020 Administered Fluzone High Dose (65yr and older) IM Intramuscular 12/21/2015 Administered Fluzone High Dose (65yr and older) Unknown 12/06/2019 Administered Fluzone High Dose (65yr and older) Unknown 12/13/2020 Administered Fluzone High Dose (65yr and older) Unknown 12/20/2021 Administered Fluzone PF Quad (6-35 months) Unknown 12/21/2015 Administered PNEUMOVAX 23 VACCINE IM Intramuscular 02/05/2019 Administe red Prevnar (PCV13) IM Intramuscular 01/30/2015 Administered Prevnar (PCV13) IM Intramuscular 12/21/2015 Administered Prevnar (PCV20) IM Intramuscular 02/11/2022 Administered xFlu shot-36 months and older IM Intramuscular 12/05/2008 Administered xFluzone High Dose-private (65yr&older) IM Intramuscular 01/05/2014 Administered xFluzone High Dose-private (65yr&older) Unknown 12/12/2016 Administered Problems Problem Type SNOMED Code ICD Code Onset Dates Problem Status W/U Status Risk Notes Problem Essential hypertension (27959203) Essential (primary) hypertension (I10) Active confirmed Problem Hyperglycemia (82510729) Hyperglycemia (R73.9) Active confirmed Problem Vitamin D deficiency (22648216) Vitamin D deficiency (E55.9) Active confirmed Problem Essential hypertension (40449901) Essential hypertension (I10) Active confirmed Problem Disorder of lumbar disc (867541809) Lumbar disc disease (M51.9) Active confirmed Problem Lumbar spinal stenosis (00805134) Lumbar spinal stenosis (M48.06) Active confirmed Problem Impaired fasting glucose (765073044) Impaired fasting glucose (R73.01) Active confirmed Problem Sciatica (01646675) Lumbago with sciatica, right side (M54.41) Active confirmed Problem Hypertensive heart AND chronic kidney disease with congestive heart failure (05300984793798) Hypertensive heart and chronic kidney disease with heart failure and stage 1 through stage 4 chronic kidney disease, or unspecified chronic kidney disease (I13.0) Active confirmed Problem Chronic systolic heart failure (432554461) Chronic systolic (congestive) heart failure (I50.22) Active confirmed Problem Degeneration of lumbar intervertebral disc (19663999) Lumbar degenerative disc disease (M51.36) Active confirmed Problem Mood disorder (59242853) Mood disorder (F39) Active confirmed Problem Hyperlipidemia (95030126) Hyperlipidemia, unspecified hyperlipidemia (E78.5) Active confirmed Problem Gastroesophageal reflux disease (746064866) Gastroesophageal reflux disease, esophagitis presence not specified (K21.9) Active confirmed Problem Leukocytosis (778937047) Leukocytosis, unspecified type (D72.829) Active confirmed Problem Sciatica (98368204) Right sided sciatica (M54.31) Active confirmed Problem Body mass index 30.00 to 34.99 (709398522542025) BMI 31.0-31.9,adult (Z68.31) Active confirmed Problem Type II diabetes mellitus without complication (035494138) Type 2 diabetes mellitus without complication, without long-term current use of insulin (E11.9) Active confirmed Problem Arthropathy of lumbar facet joint (279698258) Lumbar facet arthropathy (M12.88) Active confirmed Problem Cardiomyopathy (24055252) Cardiomyopathy, unspecified type (I42.9) Active confirmed Problem Obesity (375260293) Non morbid o besity (E66.9) Active confirmed Problem Type II diabetes mellitus without complication (164613090) Type 2 diabetes mellitus without complication, unspecified whether terminal superintendent insulin use (E11.9) Active confirmed Problem Abnormal findings on diagnostic imaging of breast (296809176) Abnormality of right breast on screening mammogram (R92.8) Active confirmed Problem Chronic kidney disease stage 3B (disorder) (281255266) Stage 3b chronic kidney disease (N18.32) Active confirmed Problem 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) Active confirmed Vital Signs Heart Rate 75 /min 02/14/2025 Blood pressure diastolic 82 mm Hg 02/14/2025 Height 68.50 in 02/14/2025 Blood pressure systolic 140 mm Hg 02/14/2025 Weight 210.6 lbs 02/14/2025 BMI 31.55 kg/m2 02/14/2025 Encounters Encounter Location Date Provider [facility] [address] [place], [place] [id number] 08/12/2024 Harry [place] Essential hypertensi on I10 ; Type 2 diabetes mellitus without complication, without long-term current use of insulin E11.9 ; Stage 3b chronic kidney disease N18.32 ; Vitamin D deficiency E55.9 and BMI 31.0-31.9,adult Z68.31 [facility] [address] [facility] [address] [place], [place] [phone] 09/13/2024 Harry [place] Stage 3b chronic kid sindhu disease N18.32 [facility] [address] [place], [place] [phone] 02/14/2025 Harry [place] Type 2 diabetes dandy itus without complication, [...] kidney disease I13.0 and BMI 31.0-31.9,adult Z68.31 [facility] [address] [place], [place] [id number] 08/13/2024 Harry [place] [facility] [address] [place], [place] [id number] 09/14/2024 Harry [place] [facility] [address] [facility] [address] [place], [place] [id number] 02/15/2025 Harry [place] Assessments Encounter Date Diagnosis (ICD Code) Assessment Notes Treatment Notes Treatment Clinical Notes Section Notes 02/14/2025 Essential hypertension (ICD-10 - I10) 02/14/2025 Type 2 diabetes mellitus without complication, without long-term current use of insulin (ICD-10 - E11.9) 08/12/2024 Essential hypertension (ICD-10 - I10) 08/12/2024 Type 2 diabetes mellitus without complication, without long-term current use of insulin (ICD-10 - E11.9) 09/13/2024 Stage 3b chronic kidney disease (ICD-10 - N18.32) 08/12/2024 Stage 3b chronic kidney disease (ICD-10 - N18.32) 02/14/2025 Hyperlipidemia, unspecified hyperlipidemia (ICD-10 - E78.5) 02/14/2025 Gastroesophageal reflux disease, esophagitis presence not specified (ICD-10 - K21.9) 08/12/2024 Vitamin D deficiency (ICD-10 - E55.9) 08/12/2024 BMI 31.0-31.9,adult (ICD-10 - Z68.31) 02/14/2025 Vitamin D deficiency (ICD-10 - E55.9) [...] Z68.31) Plan Of Treatment Next Appt Details Provider Name:Harry Wiseman ry, 08/16/2025 09:45:00 AM, [address] [facility], [address], [place], [place], [id number], Insurance Providers Payer Name Payer Address Payer Phone Subscriber Number Group Number Insured Name Patient Relationship to Insured Coverage Start Date Coverage End Date [employer] MED[employer]ARE [address] [place] [id number] Coco Mejia Self - patient is the insured Medications Administered Medication Instructions Date of Administration Dosage Notes B-12 12/19/2009 1 mL Depo- Medrol 40 mg/ml 04/19/2016 1.5 mL Medical (General) History Medical History History ICD Code Type 2 Diabetes Hypertension LT Heart Cath, Cardiomyopathy, 07/2017 Congestive Heart Failure, EF = 40%, 07/23 018 Echo with 55% EF, 10/02/2007 Heart Cath, Mild Diastolic Sysfunction, EF=45%, 2004 Esophageal Reflux osteoarthritis Lumbar Disc Disease Surgical History Surgery Date(Month/Year) Cataract Removal 1999 Menan Tooth Removal 03/2010 Menan Tooth Removal 03/21/2011 RT Knee Replacement 04/17/2011 Hospitalization History Reason Date(Month/Year) [facility] ER - Dislocated Left Shoulder 2022 Vidal Lowery in [place] for knee tavia tim 04/17/2011
--- OUTSIDE RECORDS SUMMARY | 2025-03-13 15:55 | XMS_ITS | Clinical Summary ---
Author Organization [facility] Address [address] [place] [address] Care Team Providers Care Sports Commentator Name Role Phone Harry Torres MD Primary Care Provider [phone] Allergies Active Allergy Reactions Criticality Noted Date Comments Nsaids 05/20/2016 Pt has edema Statins 05/17/2016 Medications omeprazole (priLOSEC) 20 MG capsule Take 20 mg by mouth Daily. Active losartan (COZAAR) 100 MG tablet Take 100 mg by mouth Daily. Active triamterene-hydroc hlorothiazide (DYAZIDE) 37.5-25 MG per capsule Take 1 capsule by mouth Every Morning. Active carvedilol (COREG) 6.25 MG tablet Take 6.25 mg by mouth 2 (Two) Times a Day With Meals. Active metFORMIN (GLUCOPHAGE) 500 MG tablet Take 500 mg by mouth 2 (Two) Times a Day With Meals. Active cholecalciferol (VITAMIN D3) 1000 UNITS tablet Take 1,000 Units by mouth Daily. Active Dietary Management Product (RHEUMATE) capsuleIndications :Intervertebral disc disorder with radiculopathy of lumbosacral region Take 1 capsule by mouth 2 (Two) Times a Day. 60 capsule 5 0 Active Active Problems Problem Noted Date Diagnosed Date Physical deconditioning 05/23/2016 Intervertebral disc disorder with radiculopathy of lumbosacral region 05/23/2016 Primary osteoarthritis of left knee 05/23/2016 Bilateral lower extremity edema 05/23/2016 Diabetes mellitus type 2 in obese 05/23/2016 Overview (12/22/2024): 4/1/24 REGULATORY IMO CHANGES UPDATING PER 2024 REGULATORY 2024 LOAD Morbid obesity due to excess calories 05/23/2016 DDD (degenerative disc disease), lumbar 05/24/19 17 Family History Medical History Relation Name Comments Heart disease Father Relation Name Status Comments Father Mother Social History Tobacco Use Types Packs/Day Years Used Date Smoking Tobacco: Former Cigarettes Q uit: 05/20/2002 Smokeless Tobacco: Never Alcohol Use Standard Drinks/Week Comments No 0 (1 standard drink = 0.6 oz pur e alcohol) Abuse Screen Answer Date Recorded Unsafe at Home or Work/School Not on file Feels Threatened by Someone? Not on file 11/2022 Does Anyone Keep You from Co ntacting Others or Doint Things Outside the Home? Not on file 12/30/2022 Physical Sign of Abuse Present Not on file 1 Housing Stability Answer Date Recorded Current Living Arrangements Not on file 11/2022 Potentially Unsafe Housing Conditions Not on ant e 12/30/2022 Family and Community Support Answer Anuj e Recorded Help with Day-to-Day Activities Not on file 12/30/2022 Lonely or Isolated Not on file 12/30/2022 Employment Answer Date Recorded Do you want help finding or keeping work or a meghan b? Not on file 12/30/2022 Disabilities Answer Date Recorded Concentrating, Remembering, or Making Decisions Difficulty Not on file 12/30/2022 Doing Errands Independently Difficulty Not on fi le 12/30/2022 Education Answer Date Recorded Help with school or training? Not on file Preferred Language Not on file 12/30/2022 Comments Unknown Sex and Gender Information Value Date Recorded Sex Assigned at Not on file Legal Sex Female 10:42 AM EDT Gender Identity Not on file Sexual Orientation Not on file Last Filed Vital Signs Vital Sign Reading Time Taken Comments Blood Pressure 170/88 04/20/2019 12:54 PM EST Pulse 63 05/23/2016 6:59 AM EST Temperature 36.5 C (97.7 F) 05/23/2016 6:59 AM EST Respiratory Rate 18 05/23/2016 6:59 AM EST Oxygen Saturation 97% 05/23/2016 6:59 AM EST Inhaled Oxygen Concentration - - Weight 93 kg (205 lb) 04/20/2019 12:54 PM EST Height 157.5 cm (5' 2 ) 04/20/2019 12:54 PM EST Body Mass Index 37.49 04/20/2019 12:54 PM EST Plan of Treatment Health Maintenance Due Date Last Done Comments DXA SCAN 1945 TDAP/TD VACCINES (1 - Tdap) 1964 ZOSTER VACCINE (1 of 2) 1995 ANNUAL PHYSICAL 04/15/2019 RSV Vaccine - Adults (1 - 1- dose 75+ series) 2020 INFLUENZA VACCINE 10/22/2024 12/12/2016 COVID-19 Vaccine (1 - 2023- season) 2024 Pneumococcal Vaccine 50+ Completed 02/05/2019, 11/23 Insurance [place] [id number] [employer] MED[employer]ARE ADVANTAGE Advance Directives Documents on File Type Date Recorded Patient Hospital Food Service Worker Expl anation LIVING WILL - SCAN 02/08/2022 12:53 PM HUSSEIN AGOSTO WILL DIRECTIVE Care Teams Sports Commentator Relationship Specialty Start Date End Date Harry Torres MD [address] [facility] [address] [place] [id number] PCP - General Family Medicine 05/15/16
[2025-03-13 15:57] VITALS: BP 200/89; PULSE 86; RESP 18; TEMP 36.6; O2SAT 99; BMI 34.5
[2025-03-13] MEDS: TETRACAINE 0.5% OPTH SOL 15ML OP (16:14)
[2025-03-13] MEDS: FLUORESCEIN SODIUM 1MG STRIP 1 MG OP (16:15)
[2025-03-13 16:37] VITALS: BP 189/92; PULSE 68; O2SAT 94
[2025-03-13 16:39] VITALS: BP 189/92; PULSE 73; RESP 18; TEMP 36.6; O2SAT 99
[2025-03-13] MEDS: ERYTHROMYCIN BASE 1 GM OINT...G. 0.5 GM OP (16:45)
[2025-03-13] MEDS: GENTAMICIN 0.3% OPTH SOL 5ML OP (16:46)
== END 2025-03-13 16:52 | disposition home or self-care (01) ==
PROVIDERS: Emergency Provider Student in an Organized Health Care Education/Training Program; PCP Family Medicine
DX: H18.822 Corneal disorder due to contact lens, left eye (principal)
CPT/HCPCS: 99283